=== PATIENT | female | born 1965 | race Caucasian/White ===

== ENCOUNTER 2016-10-17 13:57 | Observation (INO) | payer OTHER ==
[2016-10-17] MEDS ORDERED: Pepcid 20 MG VIAL IV ONE ×2 (13:58→14:22)
[2016-10-17] MEDS ORDERED: NITRO-BID 2% UD PACKETS TOP ONE (13:58)
[2016-10-17] MEDS ORDERED: Sodium Chloride 0.9% 1000 ML 1,000 ML IV SCH (14:00)
[2016-10-17] MEDS ORDERED: BABY ASPIRIN 81 MG CHEW PO ONE (14:05)
--- NOTE | 2016-10-17 14:12 | ERPHSYRPT ---
- History of Present Illness Time Seen by Provider: 10/17/16 13:58 Historian: patient, other (Dr Perez) Physician History: CC: chest pain Hx; 51 y/o patient of Dr Perez/Giovanny with 4 day hx of chest pain. It has gotten better each day with 3 NTG. Today was in office and sent to ER for evaluation. EKG ok in office. Has chest pain presently. Took a baby asa this AM. She had remote stress test per Dr Baltazar. She is unsure of prior heart disease but is known to have prior coronary spasms. No N/V. No shortness of breath. No injury. Timing/Duration: day(s) (4) Location: central Chest Pain Radiation: arm Severity of Pain-Max: moderate Severity of Pain-Current: moderate Nitro Today/Relief: 0.4 mg x 1, provided at home Aspirin Treatment Today: provided at home, provided by ED Allergies/Adverse Reactions: morphine Allergy (Intermediate, Verified 10/17/16 14:17) Hives penicillin G Allergy (Intermediate, Verified 10/17/16 14:17) Hives Home Medications: Aspirin [Benji Chewable] 81 mg PO DAILY 10/17/16 [History] Atenolol 25 mg PO BID 10/17/16 [History] Citalopram Hydrobromide [Citalopram HBr] 40 mg PO DAILY 10/17/16 [History] Hydroxyzine HCl 10 mg PO TID 10/17/16 [History] Isosorbide Mononitrate 60 mg [Imdur 60MG] 60 mg PO BID 10/17/16 [History] Lovastatin 40 mg PO BID 10/17/16 [History] Nitroglycerin 0.4 mg Tablet [Nitrostat 0.4 MG Tablet] 0.4 mg SL UD [History] - Review of Systems Constitutional: No Fever, No Chills Eyes: No Symptoms Ears, Nose, & Throat: No Symptoms Respiratory: No Cough, No Dyspnea Cardiac: Chest Pain Abdominal/Gastrointestinal: No Abdominal Pain, No Nausea, No Vomiting Genitourinary Symptoms: No Symptoms Musculoskeletal: No Back Pain Skin: No Rash Neurological: No Headache All Other Systems: Reviewed and Negative - Past Medical History Pertinent Past Medical History: Yes (coronary spasms) - Social History Smoking Status: Current every day smoker - Physical Exam General Appearance: alert Eye Exam: PERRL/EOMI Ears, Nose, Throat Exam: normal ENT inspection, moist mucous membranes Neck Exam: normal inspection, non-tender, supple Respiratory Exam: normal breath sounds, lungs clear Cardiovascular Exam: regular rate/rhythm, No murmur Gastrointestinal/Abdomen Exam: soft, No tenderness, No distention, No mass, No guarding Extremity Exam: normal inspection, normal range of motion, No calf tenderness Neurologic Exam: alert, oriented x 3, cooperative, plastic joint maker II-XII nml as tested, sensation nml, No motor deficits Skin Exam: warm, dry, No rash - Course Nursing assessment & vital signs reviewed: Yes EKG Interpreted by Me: RATE (63), Sinus Rhythm, NORMAL AXIS, NORMAL INTERVALS ( QTc 441), NORMAL QRS, NORMAL ST-T - Radiology Exams cxr X-ray Interpretation: Teleradiologist Report, Negative Ordered Tests: Active Orders 24 hr Category Date Time Status Caustics Loader STAT Care 10/17/16 13:58 Active EKG-ER Only STAT Care 10/17/16 13:58 Active IV Insertion STAT Care 10/17/16 13:58 Active Pulse Oximetry (ED) STAT Care 10/17/16 13:58 Active CHEST 1 VIEW (PORTABLE) Stat Exams 10/17/16 13:58 Completed CBC W DIFF Stat Lab 10/17/16 14:10 Completed CMP Stat Lab 10/17/16 14:10 Completed TROPONIN Q3H Lab 10/17/16 14:10 Completed TROPONIN Q3H Lab 10/17/16 17:00 Ordered TROPONIN Q3H Lab 10/17/16 20:00 Ordered TROPONIN Q3H Lab 10/17/16 23:00 Ordered TROPONIN Q3H Lab 10/18/16 02:00 Ordered Medication Summary Generic Name Dose Route Start Last Admin Trade Name Freq PRN Reason Stop Dose Admin Sodium Chloride 1,000 mls @ 100 mls/hr 10/17/16 14:00 10/17/16 14:23 Sodium Chloride 0.9% 1000 Ml IV 11/16/16 13:59 100 mls/hr .Q10H LOVE Administration Discontinued Medications Generic Name Dose Route Start Last Admin Trade Name Freq PRN Reason Stop Dose Admin Aspirin 81 mg 10/17/16 14:05 10/17/16 14:22 Baby Aspirin 81 Mg Chew PO 10/17/16 14:06 81 mg STAT ONE Administration Aspirin Confirm 10/17/16 14:22 Baby Aspirin 81 Mg Chew Administered 10/17/16 14:23 Dose 81 mg .ROUTE .STK-MED ONE Famotidine 20 mg 10/17/16 13:58 10/17/16 14:25 Pepcid 20 Mg Vial IV 10/17/16 13:59 20 mg STAT ONE Administration Famotidine Confirm 10/17/16 14:22 Pepcid 20 Mg Vial Administered 10/17/16 14:23 Dose 20 mg IV .STK-MED ONE Nitroglycerin 1 gm 10/17/16 13:58 10/17/16 14:24 Nitro-Bid 2% Ud Packets TOP 10/17/16 13:59 1 gm STAT ONE Administration Nitroglycerin Confirm 10/17/16 14:22 Nitro-Bid 2% Ud Packets Administered 10/17/16 14:23 Dose 1 gm .ROUTE .STK-MED ONE Lab/Rad Data: Laboratory Result Diagrams 10/17/16 14:10 10/17/16 14:10 Laboratory Results 10/17/16 10/17/16 10/17/16 Range/Units 14:10 14:10 14:10 WBC 11.4 H (4.0-10.5) K/mm3 RBC 5.06 (4.1-5.4) M/mm3 Hgb 15.0 (12.0-16.0) gm/dl Hct 46.7 (35-47) % MCV 92.3 (78-100) fl MCH 29.6 (26-32) pg MCHC 32.1 (32-36) g/dl RDW 15.3 H (11.5-14.0) % Plt Count 374 (150-450) K/mm3 MPV 10.7 H (6-9.5) fl Gran % 49.5 (36.0-66.0) % Lymphocytes % 41.0 (24.0-44.0) % Monocytes % 8.4 (0.0-12.0) % Eosinophils % 0.9 (0.00-5.0) % Basophils % 0.2 (0.0-0.4) % Basophils # 0.02 (0-0.4) Sodium 137 (136-145) mEq/L Potassium 4.3 (3.5-5.1) mEq/L Chloride 103 (98-107) mEq/L Carbon Dioxide 25.2 (21-32) mEq/L Anion Gap 13.1 (5-15) MEQ/L BUN 15 (9-20) mg/dL Creatinine 0.98 (0.55-1.30) mg/dl Estimated GFR > 60 ML/MIN Glucose 94 (70-110) MG/DL Calcium 9.1 (8.5-10.1) mg/dL Total Bilirubin 0.6 (0.2-1.0) mg/dL AST 21 (15-37) U/L ALT 22 (12-78) U/L Alkaline Phosphatase 103 (46-116) U/L Troponin I < 0.017 (0.000-0.056) ng/ml Serum Total Protein 8.2 (6.4-8.2) gm/dL Albumin 4.0 (3.4-5.0) g/dL - Progress Progress Note: 10/17/16 16:36 Pain free after NTG paste. Subjectively feels like left arm cool and tingles. Warmth equal at this time. Pulse ox and BP equal between arms. Called Dr Perez who advised tele obs for NTG paste. Counseled pt/family regarding: lab results, diagnosis, need for follow-up, rad results - Departure Time of Disposition: 16:36 Departure Disposition: Observation Clinical Impression: Chest pain, rule out acute myocardial infarction Condition: Stable Critical Care Time: No Referrals: EVE PEREZ [Primary Care Provider] -
[2016-10-17 14:15] LABS: BASOPHIL % 0.2 % (0.0-0.4); Eosinophil % 0.9 % (0.00-5.0); Granulocytes % 49.5 % (36.0-66.0); Mean Cell Volume 92.3 fl (78-100); Mean Corpuscular Hemoglobin 29.6 pg (26-32); Mean Platelet Volume 10.7 fl (6-9.5); Monocytes % 8.4 % (0.0-12.0); Platelet Count 374 K/mm3 (150-450); Red Blood Count 5.06 M/mm3 (4.1-5.4); Red Cell Distribution Width 15.3 % (11.5-14.0); White Blood Count 11.4 K/mm3 (4.0-10.5)
[2016-10-17] MEDS ORDERED: NITRO-BID 2% UD PACKETS ONE (14:22)
[2016-10-17] MEDS ORDERED: Sodium Chloride 0.9% 1000 ML 1,000 ML ONE (14:22)
[2016-10-17] MEDS ORDERED: BABY ASPIRIN 81 MG CHEW ONE (14:22)
[2016-10-17 14:36] LABS: ALKALINE PHOSPHATASE 103 U/L (46-116); ANION GAP 13.1 MEQ/L (5-15); BILIRUBIN,TOTAL 0.6 mg/dL (0.2-1.0); BLOOD UREA NITROGEN 15 mg/dL (9-20); CHLORIDE 103 mEq/L (98-107); Carbon Dioxide 25.2 mEq/L (21-32); Glucose 94 MG/DL (70-110); Potassium 4.3 mEq/L (3.5-5.1); SGOT/AST 21 U/L (15-37); SGPT/ALT 22 U/L (12-78); SODIUM 137 mEq/L (136-145); Total Protein 8.2 gm/dL (6.4-8.2)
--- NOTE | 2016-10-17 14:56 | XRAY ---
Indication: Chest pain and short of breath. Left arm numbness. Comparison: None Portable chest hyperinflated and clear. Heart is not enlarged. Vascular normal. Bony thorax intact. Impression: Nonacute hyperinflated chest.
[2016-10-17] MEDS ORDERED: Zofran 4 MG/2 ML VIAL IV PRN (17:20)
[2016-10-17] MEDS ORDERED: MILK OF MAGNESIA 30 ML PO PRN (17:20)
[2016-10-17] MEDS ORDERED: TYLENOL 325 MG PO PRN (17:20)
[2016-10-17] MEDS ORDERED: Sodium Chloride 0.9% 500 ML 500 ML IV SCH (17:20)
[2016-10-17] MEDS ORDERED: MAALOX ES 30 ML UNIT DOSE PO PRN (17:20)
[2016-10-17] MEDS ORDERED: Senokot-S Tablet PO PRN (17:20)
[2016-10-17] MEDS ORDERED: NICODERM CQ 14 MG TOP SCH (21:15)
[2016-10-17] MEDS: NITRO-BID 2% UD PACKETS TOP SCH (22:39)
[2016-10-17] MEDS: Pepcid 20 MG VIAL IV SCH (22:39)
[2016-10-18] MEDS: TENORMIN 50 MG PO SCH ×2 (01:32→09:29)
[2016-10-18] MEDS: NITRO-BID 2% UD PACKETS TOP SCH ×2 (05:44→14:26)
[2016-10-18] MEDS ORDERED: NON-FORMULARY ITEM (Hydroxyzine Hcl [Hydroxyzine Hcl] 10 MG) PO PRN (08:05)
[2016-10-18] MEDS ORDERED: Nitrostat 0.4 MG Tablet SL PRN (08:15)
[2016-10-18] MEDS ORDERED: ATARAX 25 MG PO PRN (08:39)
[2016-10-18] MEDS: Pepcid 20 MG VIAL IV SCH (09:35)
[2016-10-18] MEDS ORDERED: NON-FORMULARY ITEM (Citalopram Hydrobromide [Citalopram Hbr] 40 MG) PO SCH (10:00)
[2016-10-18] MEDS ORDERED: LOVASTATIN 80 MG PO SCH (10:00)
[2016-10-18] MEDS ORDERED: ceLEXa 20 MG PO SCH (10:00)
[2016-10-18] MEDS ORDERED: ECOTRIN 81 MG PO SCH (10:00)
[2016-10-18] MEDS ORDERED: BABY ASPIRIN 81 MG CHEW PO SCH (10:00)
[2016-10-18] MEDS ORDERED: Imdur 60MG PO SCH (10:00)
[2016-10-18] MEDS ORDERED: Ecotrin 325 MG PO SCH (10:00)
[2016-10-18] MEDS ORDERED: PNEUMOVAX 23 IM ONE (10:00)
--- NOTE | 2016-10-18 11:13 | PCM.SSS ---
History of Present Illness - Chief Complaint Chief Complaint: Chest Pain r/o MO History of Present Illness: is a 51 year old female with long hx intermittent chest pain who came to Dr. Perez in the office yesterday c/o 4d of chest pain. Pain was described as sharp, dull, and burning; constant, 10/10 with diaphoresis, palpitations, and L arm pain "like a vice." She notes her L arm felt cold. She was taking nitro at home with incomplete relief (would take up to 3 nitro in succession). When nitro paste was applied in the ER, the pain resolved. She is not currently in any pain. Does currently have nitro paste in place. She also had several syncopal episodes; she notes that she has had these for years without any diagnosis. She no longer drives. Pt was seeing laundry operator in [place] for the past 20 years. She moved here and started seeing Dr. Perez in Aug 2016. She now sees Dr. Baltazar as well. She remembers having a diagnosis of CAD and vasospasm. Her nuclear stress test on was normal. She last had a heart catheterization about 18 years ago. She notes during ROS that on two occasions she had a vein in the foot (one on each side) that had local enlargement that was marked and then ruptured, leaving a large bruise. Also notes at times she gets red streaks that seem to correspond with blood vessels. She denies any history of testing for autoimmune disorders or rheumatology consult. Significant also in her medical hx is cervical ca in 1986 which also spread to the bowel, she states, requiring partial resection of bowel. - Review of Systems Respiratory: Short Of Breath Cardiac: Chest Pain, Edema (foot edema in the morning x 2 this week; resolved by the time she finished walking back from the bathroom) Abdominal/Gastrointestinal: Constipation, Other (poor appetite at baseline) Neurological: Other (syncope) Psychological: Anxiety (has PTSD), No Suicidal Ideations All Other Systems: Reviewed and Negative Medications & Allergies Home Medications: Home Medication List Aspirin [Benji Chewable] 81 mg PO DAILY 10/17/16 [History Confirmed 10/17/16] Atenolol 25 mg PO BID 10/17/16 [History Confirmed 10/17/16] Citalopram Hydrobromide [Citalopram HBr] 40 mg PO DAILY 10/17/16 [History Confirmed 10/17/16] Hydroxyzine HCl 10 mg PO TID PRN PRN 10/17/16 [History Confirmed 10/17/16] Isosorbide Mononitrate 60 mg [Imdur 60MG] 60 mg PO DAILY 10/17/16 [History Confirmed 10/17/16] Lovastatin 80 mg PO DAILY 10/17/16 [History Confirmed 10/17/16] Nitroglycerin 0.4 mg Tablet [Nitrostat 0.4 MG Tablet] 0.4 mg SL UD [History Confirmed 10/17/16] Allergies/Adverse Reactions: Allergies Allergy/AdvReac Type Severity Reaction Status Date / Time morphine Allergy Intermediate Hives Verified 10/17/16 14:17 penicillin G Allergy Intermediate Hives Verified 10/17/16 14:17 - Past Medical History Past Medical History: Yes Neurological History: TIA ENT History: Cataracts Cardiac History: High Cholesterol, Hypertension, Other Respiratory History: No Pertinent History Endocrine Medical History: Hypoglycemia Musculoskelatal History: No Pertinent History GI Medical History: Other Pyscho-Social History: Anxiety, Panic Disorder Reproductive Disorders: Cervical Cancer Comment: coronary spasms, angina, mitrovalve prolapse, syncope, "bowel blockage ", had a loop recorder placed and removed, and a pacemaker/defib placed and removed, former alcoholic - Female History Are you now?: No - Past Surgical History Past Surgical History: Yes Cardiac History: Internal Defibrillator, Pacemaker, Other Respiratory Surgery: No Pertinent History GI Surgical History: No Pertinent History Genitourinary Surgical Hx: No Pertinent History Musculskeletal Surgical Hx: No Pertinent History Female Surgical History: Hysterectomy Other Surgical History: pacemaker/defib placed and removed, loop recorder placed and removed - Social History Smoking Status: Current every day smoker How long have you smoked: 35 years Exposure to second hand smoke: Yes Alcohol: Occasionally Drug Use: none - Physical Exam Vital Signs: Vital Signs - 24 hr Temp Pulse Pulse Resp BP BP BP 10/18/16 09:20 104/70 10/18/16 07:14 97.8 F 66 18 107/57 10/18/16 04:00 97.8 F 65 18 116/56 10/18/16 01:32 57 L 122/58 10/18/16 00:00 98.3 F 57 L 18 122/58 10/17/16 20:00 98.8 F 69 20 102/57 10/17/16 18:15 98.3 F 57 L 22 113/69 10/17/16 15:45 57 L 22 113/69 10/17/16 14:51 65 20 130/56 10/17/16 14:10 98.3 F 71 60 22 158/83 Pulse Ox 10/18/16 09:20 10/18/16 07:14 96 10/18/16 04:00 98 10/18/16 01:32 10/18/16 00:00 100 10/17/16 20:00 96 10/17/16 18:15 98 10/17/16 15:45 98 10/17/16 14:51 97 10/17/16 14:10 100 General Appearance: no apparent distress Neurologic Exam: alert, oriented x 3, cooperative Eye Exam: eyes nml inspection Neck Exam: normal inspection Respiratory Exam: normal breath sounds, lungs clear Cardiovascular Exam: regular rate/rhythm, normal heart sounds, No murmur Gastrointestinal/Abdomen Exam: soft, normal bowel sounds, No tenderness Back Exam: normal inspection, No CVA tenderness Extremity Exam: normal inspection, No pedal edema, No swelling Skin Exam: normal color, warm, dry Results - Labs Lab/Micro Results: Lab Results-Last 24 Hours 10/17/16 10/17/16 10/18/16 Range/Units 20:00 23:04 02:18 Troponin I < 0.017 < 0.017 < 0.017 (0.000-0.056) ng/ml Triglycerides (30-200) mg/dL Cholesterol (100-200) mg/dL LDL Cholesterol (5-99) mg/dL HDL Cholesterol (35-60) mg/dL Heart Disease Risk Ratio 10/18/16 Range/Units 05:24 Troponin I (0.000-0.056) ng/ml Triglycerides 95 (30-200) mg/dL Cholesterol 146 (100-200) mg/dL LDL Cholesterol 91 (5-99) mg/dL HDL Cholesterol 44 (35-60) mg/dL Heart Disease Risk Ratio 3.3 - Other Procedures and Tests Respiratory Therapy 10/18/16 10:14 EKG ONCE 10/19/16 05:00 EKG ONCE Assessment/Plan (1) Chest pain, rule out acute myocardial infarction Current Visit: Yes Status: Acute Assessment & Plan: MO has been ruled out with five negative troponins. Currently pain free. Code(s): R07.9 - CHEST PAIN, UNSPECIFIED (2) Syncope Current Visit: Yes Status: Acute Qualifiers: Syncope type: unspecified Qualified Code(s): R55 - Syncope and collapse Code(s): R55 - SYNCOPE AND COLLAPSE (3) Chronic chest pain Current Visit: Yes Status: Acute Assessment & Plan: I removed the nitro paste. If pain recurs in the next several hours, I will discuss with on-call laundry operator Dr. Mary Rinaldi whether to change the imdur or give another form of nitro for home use. With her complaint of red streaking of the veins and venous distension in the feet, will go ahead and start auto-immune workup. She states her laundry operator in [place] wanted her to see a vascular surgeon; would have her discuss this with Dr. Perez regarding outpatient referral. Code(s): R07.9 - CHEST PAIN, UNSPECIFIED; G89.29 - OTHER CHRONIC PAIN Hospital Summary - Hospital Course Hospital Course: Pt admitted through ER, had been seen by Dr. Perez in office with 4d of chest pain. Pt with chronic intermittent chest pain; has been seeing cardiology for 20 years and is unsure the etiology of her pain. Troponins negative x 5. Pt currently pain free with nitro paste. If continues to be pain free, can d/c home after 4 hours. If the pain returns will discuss home meds wiht on-call laundry operator Dr. Mary Rinaldi. Follow up wiht Dr. Baltazar outpatient. Autoimmune labs ordered here for some concern for underlying vasculitis. - Vitals & Intake/Output Vital Signs: Vital Signs Temperature 97.8 F 10/18/16 07:14 Pulse Rate 66 10/18/16 07:14 Respiratory Rate 18 10/18/16 07:14 Blood Pressure 104/70 10/18/16 09:20 O2 Sat by Pulse Oximetry 96 10/18/16 07:14 Intake & Output: Intake & Output 10/15/16 10/16/16 10/17/16 10/18/16 11:59 11:59 11:59 11:59 Intake Total 1710 Balance 1710 Weight 70.261 kg - Lab Result Diagrams: 10/17/16 14:10 10/17/16 14:10 Lab Results-Last 24 Hrs: Lab Results-Last 24 Hours 10/17/16 10/17/16 10/18/16 Range/Units 20:00 23:04 02:18 Troponin I < 0.017 < 0.017 < 0.017 (0.000-0.056) ng/ml Triglycerides (30-200) mg/dL Cholesterol (100-200) mg/dL LDL Cholesterol (5-99) mg/dL HDL Cholesterol (35-60) mg/dL Heart Disease Risk Ratio 10/18/16 Range/Units 05:24 Troponin I (0.000-0.056) ng/ml Triglycerides 95 (30-200) mg/dL Cholesterol 146 (100-200) mg/dL LDL Cholesterol 91 (5-99) mg/dL HDL Cholesterol 44 (35-60) mg/dL Heart Disease Risk Ratio 3.3 - Procedures and Test Procedures and Tests throughout Hospitalization: Therapy Orders & Screens 10/17/16 18:33 Smoking Cessation Education Comment: Diagnosis: Chest Pain r/o MO Smoking Status: Current every day smoker How long have you smoked: 35 years Have you smoked in the past 12 months: Yes Approximately how many cigarettes per day: 1/2 pack Do you dip or chew tobacco: No 10/17/16 22:00 EKG ONCE Comment: 10/18/16 05:00 EKG ONCE Comment: 10/18/16 10:14 EKG ONCE Comment: 10/19/16 05:00 EKG ONCE Comment: - Discharge Disposition: Home, Self-Care Condition: Stable Prescriptions: No Action Aspirin [Benji Chewable] 81 mg PO DAILY Lovastatin 80 mg PO DAILY Isosorbide Mononitrate 60 mg [Imdur 60MG] 60 mg PO DAILY Hydroxyzine HCl 10 mg PO TID PRN PRN PRN Reason: Anxiety Citalopram Hydrobromide [Citalopram HBr] 40 mg PO DAILY Atenolol 25 mg PO BID Nitroglycerin 0.4 mg Tablet [Nitrostat 0.4 MG Tablet] 0.4 mg SL UD Follow up with: EVE PEREZ [Primary Care Provider] -
[2016-10-18 14:53] LABS: Collection Type VOID; Ph 5.5 (5-6)
[2016-10-18 14:54] LABS: Bacteria PACKED /HPF (NEGATIVE); COMPLETE URINE MICROSCOPIC? YES; Epithelial Cells FEW /HPF (FEW)
[2016-10-18 21:04] VITALS: BP 139/65; PULSE 71; O2SAT 100
[2016-10-18] MEDS ORDERED: ZOCOR 20MG PO SCH (22:00)
[2016-10-20 14:00] LABS: APTT In Lupus Anticoagulant 26.7 sec (23.0-34.0); Lupus Anticoagulant Pat1 41.9 sec (0.0-45.0); Ratio For TTI 1.2 (<=1.3)
[2016-10-20 16:15] LABS: ANA IgG Titer Not Indicated (Not Indicated)
== END 2016-10-18 21:20 | disposition home or self-care (01) ==
LOC: ED 13:57 → MED SURG 17:15
PROVIDERS: ADMIT Internal Medicine; ATTEND Internal Medicine
DX: R07.9 Chest pain, unspecified (principal); I10 Essential (primary) hypertension; R55 Syncope and collapse; I25.10 Atherosclerotic heart disease of native coronary artery without angina pectoris; G89.29 Other chronic pain; F45.42 Pain disorder with related psychological factors; Z85.41 Personal history of malignant neoplasm of cervix uteri; Z85.038 Personal history of other malignant neoplasm of large intestine; Z90.49 Acquired absence of other specified parts of digestive tract; E78.00 Pure hypercholesterolemia, unspecified; F41.9 Anxiety disorder, unspecified; F43.10 Post-traumatic stress disorder, unspecified; Z72.0 Tobacco use
CPT/HCPCS: 36000; 36415; 71010; 80053; 80061; 81000; 83721; 84484; 85025; 85613; 85652; 86038; 86140; 86147; 86160; 86430; 90732; 93005; 93041; 96360; 96361; 96374; 99285; G0378; A9270-GY

== ENCOUNTER 2017-07-15 01:31 | Emergency (ER) | payer OTHER ==
[2017-07-15] MEDS ORDERED: BABY ASPIRIN 81 MG CHEW PO ONE (01:39)
[2017-07-15] MEDS ORDERED: Nitrostat 0.4 MG (ED) SL ONE ×2 (01:39→02:16)
[2017-07-15] MEDS ORDERED: Valium 5 MG PO ONE (01:41)
[2017-07-15] MEDS ORDERED: Sodium Chloride 0.9% 1000 ML 1,000 ML IV SCH (01:45)
--- NOTE | 2017-07-15 01:47 | ERPHSYRPT ---
- History of Present Illness Time Seen by Provider: 07/15/17 01:31 Source: patient Exam Limitations: no limitations Physician History: FOR THE PAST 30 MINUTES PT HAS HAD SHORTNESS OF AIR, NAUSEA AND CONSTANT SHARP LOWER MID ANTERIOR CHEST PAIN WORSE WITH MOVEMENT AND DEEP BREATHING. PT HAS ALSO HAD COUGHING WITH OCCASIONAL VOMITING AFTER COUGHING FOR THE PAST MONTH. Allergies/Adverse Reactions: morphine Allergy (Intermediate, Verified 10/17/16 14:17) Hives penicillin G Allergy (Intermediate, Verified 10/17/16 14:17) Hives Home Medications: Aspirin [Benji Chewable] 81 mg PO DAILY 10/17/16 [History] Atenolol 25 mg PO BID 10/17/16 [History] Citalopram Hydrobromide [Citalopram HBr] 40 mg PO DAILY 10/17/16 [History] Hydroxyzine HCl 10 mg PO TID PRN PRN 10/17/16 [History] Isosorbide Mononitrate 60 mg [Imdur 60MG] 60 mg PO DAILY 10/17/16 [History] Lovastatin 80 mg PO DAILY 10/17/16 [History] Nitroglycerin 0.4 mg Tablet [Nitrostat 0.4 MG Tablet] 0.4 mg SL UD [History] Hx Tetanus, Diphtheria Vaccination/Date Given: No Hx Influenza Vaccination/Date Given: Yes Hx Pneumococcal Vaccination/Date Given: No - Review of Systems Constitutional: No Fever Respiratory: Cough, Dyspnea Cardiac: Chest Pain Abdominal/Gastrointestinal: Nausea, Vomiting All Other Systems: Reviewed and Negative - Past Medical History Pertinent Past Medical History: Yes Neurological History: TIA ENT History: Cataracts Cardiac History: High Cholesterol, Hypertension, Other Respiratory History: No Pertinent History Endocrine Medical History: Hypoglycemia Musculoskeletal History: No Pertinent History GI Medical History: Other Psycho-Social History: Anxiety, Panic Disorder Female Reproductive Disorders: Cervical Cancer Other Medical History: coronary spasms, angina, mitrovalve prolapse, syncope, "bowel blockage", had a loop recorder placed and removed, and a pacemaker/defib placed and removed, former alcoholic - Past Surgical History Past Surgical History: Yes Cardiac: Internal Defibrillator, Pacemaker, Other Respiratory: No Pertinent History Gastrointestinal: No Pertinent History Genitourinary: No Pertinent History Musculoskeletal: No Pertinent History Female Surgical History: Hysterectomy Other Surgical History: pacemaker/defib placed and removed, loop recorder placed and removed - Social History Smoking Status: Current every day smoker How long have you smoked: 35 years Exposure to second hand smoke: Yes Drug Use: none Patient Lives Alone: No - Nursing Vital Signs Nursing Vital Signs: Initial Vital Signs Temperature 98.2 F 07/15/17 01:44 Pulse Rate 67 07/15/17 01:44 Respiratory Rate 20 07/15/17 01:44 Blood Pressure 166/91 07/15/17 01:44 O2 Sat by Pulse Oximetry 98 07/15/17 01:44 Pain Scale Pain Intensity 0 - Physical Exam General Appearance: alert Eye Exam: PERRL/EOMI Ears, Nose, Throat Exam: TMs normal, pharynx normal, moist mucous membranes Neck Exam: normal inspection Respiratory Exam: lungs clear Cardiovascular Exam: normal heart sounds Gastrointestinal/Abdomen Exam: soft, normal bowel sounds Back Exam: normal range of motion Extremity Exam: normal inspection, No pedal edema Neurologic Exam: alert, cooperative Skin Exam: warm, dry - Course Nursing assessment & vital signs reviewed: Yes EKG Interpreted by Me: RATE (75), Sinus Rhythm, NORMAL AXIS, NORMAL INTERVALS - Radiology Exams Chest X-ray Interpretation: Interpreted by me, No Pneumonia Ordered Tests: Active Orders 24 hr Category Date Time Status [place] STAT Care 07/15/17 01:40 Active EKG-ER Only STAT Care 07/15/17 01:39 Active IV Insertion STAT Care 07/15/17 01:39 Active Oxygen-ED Only NASAL CANNULA 2 lpm Care 07/15/17 01:39 Active Pulse Oximetry (ED) STAT Care 07/15/17 01:39 Active CHEST 2 VIEWS (PA AND LAT) Stat Exams 07/15/17 01:40 Taken AMYLASE Stat Lab 07/15/17 01:40 Completed CBC W DIFF Stat Lab 07/15/17 01:40 Completed CMP Stat Lab 07/15/17 01:40 Completed LIPASE Stat Lab 07/15/17 01:40 Completed MAGNESIUM Stat Lab 07/15/17 01:40 Completed Manual Differential NC Stat Lab 07/15/17 01:40 Completed NT PRO BNP Stat Lab 07/15/17 01:40 Completed TROPONIN Q3H Lab 07/15/17 01:40 Completed TROPONIN Q3H Lab 07/15/17 04:45 Ordered TROPONIN Q3H Lab 07/15/17 07:45 Ordered TROPONIN Q3H Lab 07/15/17 10:45 Ordered TROPONIN Q3H Lab 07/15/17 13:45 Ordered UA W/RFX UR CULTURE Stat Lab 07/15/17 01:40 Ordered Urine Triage Profile Stat Lab 07/15/17 01:40 Ordered Medication Summary Generic Name Dose Route Start Last Admin Trade Name Jeff PRN Reason Stop Dose Admin Sodium Chloride 1,000 mls @ 100 mls/hr 07/15/17 01:45 07/15/17 02:22 Sodium Chloride 0.9% 1000 Ml IV 08/14/17 01:44 100 mls/hr .Q10H LOVE Administration Discontinued Medications Generic Name Dose Route Start Last Admin Trade Name Jeff PRN Reason Stop Dose Admin Aspirin 324 mg 07/15/17 01:39 07/15/17 02:21 Baby Aspirin 81 Mg Chew PO 07/15/17 01:40 324 mg STAT ONE Administration Aspirin Confirm 07/15/17 02:15 Baby Aspirin 81 Mg Chew Administered 07/15/17 02:16 Dose 324 mg .ROUTE .STK-MED ONE Diazepam 10 mg 07/15/17 01:41 07/15/17 02:22 Valium 5 Mg PO 07/15/17 01:42 10 mg STAT ONE Administration Diazepam Confirm 07/15/17 02:16 Valium 5 Mg Administered 07/15/17 02:17 Dose 10 mg .ROUTE .STK-MED ONE Nitroglycerin 0.4 mg 07/15/17 01:39 07/15/17 02:22 Nitrostat 0.4 Mg (Ed) SL 07/15/17 01:40 0.4 mg STAT ONE Administration Nitroglycerin Confirm 07/15/17 02:16 Nitrostat 0.4 Mg (Ed) Administered 07/15/17 02:17 Dose 0.4 mg SL .STK-MED ONE Lab/Rad Data: Laboratory Result Diagrams 07/15/17 01:40 07/15/17 01:40 Laboratory Results 07/15/17 07/15/17 07/15/17 Range/Units 01:40 01:40 01:40 WBC 13.6 H (4.0-10.5) K/mm3 RBC 4.47 (4.1-5.4) M/mm3 Hgb 13.4 (12.0-16.0) gm/dl Hct 41.7 (35-47) % MCV 93.3 (78-100) fl MCH 30.0 (26-32) pg MCHC 32.1 (32-36) g/dl RDW 14.0 (11.5-14.0) % Plt Count 347 (150-450) K/mm3 MPV 11.2 H (6-9.5) fl Sodium 141 (136-145) mEq/L Potassium 4.2 (3.5-5.1) mEq/L Chloride 107 (98-107) mEq/L Carbon Dioxide 23.5 (21-32) mEq/L Anion Gap 14.2 (5-15) MEQ/L BUN 16 (9-20) mg/dL Creatinine 0.82 (0.55-1.30) mg/dl Estimated GFR > 60 ML/MIN Glucose 94 (70-110) MG/DL Calcium 8.6 (8.5-10.1) mg/dL Magnesium 2.1 (1.8-2.4) mg/dL Total Bilirubin 0.20 (0.2-1.0) mg/dL AST 19 (15-37) U/L ALT 19 (12-78) U/L Alkaline Phosphatase 78 (46-116) U/L Troponin I < 0.017 (0.000-0.056) ng/ml NT-Pro-B Natriuret Pep 154 H (0-125) pg/ml Serum Total Protein 7.3 (6.4-8.2) gm/dL Albumin 3.7 (3.4-5.0) g/dL Amylase 78 (25-115) U/L Lipase 131 (73-393) U/L - Departure Time of Disposition: 03:05 Departure Disposition: Home Clinical Impression: CHEST PAIN, ANXIETY Condition: Stable Critical Care Time: No Referrals: EVE PEREZ [Primary Care Provider] - Instructions: Chest Pain Additional Instructions: FOLLOW UP WITH PRIVATE DOCTOR TOMORROW.
[2017-07-15 01:57] VITALS: O2SAT 98
[2017-07-15 02:02] LABS: Granulocyte Absolute (ANC) 6.87 (1.4-6.9); Hematocrit 41.7 % (35-47); Hemoglobin 13.4 gm/dl (12.0-16.0); Mean Cell Volume 93.3 fl (78-100); Mean Corpuscular Hgb Concent. 32.1 g/dl (32-36); Mean Platelet Volume 11.2 fl (6-9.5); Platelet Count 347 K/mm3 (150-450); Red Blood Count 4.47 M/mm3 (4.1-5.4); White Blood Count 13.6 K/mm3 (4.0-10.5)
[2017-07-15] MEDS ORDERED: BABY ASPIRIN 81 MG CHEW ONE (02:15)
[2017-07-15] MEDS ORDERED: Sodium Chloride 0.9% 1000 ML 1,000 ML ONE (02:16)
[2017-07-15] MEDS ORDERED: Valium 5 MG ONE (02:16)
[2017-07-15 02:29] LABS: ALBUMIN 3.7 g/dL (3.4-5.0); ALKALINE PHOSPHATASE 78 U/L (46-116); AMYLASE 78 U/L (25-115); ANION GAP 14.2 MEQ/L (5-15); BLOOD UREA NITROGEN 16 mg/dL (9-20); CHLORIDE 107 mEq/L (98-107); Calcium 8.6 mg/dL (8.5-10.1); Carbon Dioxide 23.5 mEq/L (21-32); Creatinine 1 0.82 mg/dl (0.55-1.30); EST GLOMERULAR FILTRATION RATE > 60 ML/MIN; Glucose 94 MG/DL (70-110); LIPASE 131 U/L (73-393); MAGNESIUM 2.1 mg/dL (1.8-2.4); NT PRO BNP 154 pg/ml (0-125); Potassium 4.2 mEq/L (3.5-5.1); SGOT/AST 19 U/L (15-37); SGPT/ALT 19 U/L (12-78); SODIUM 141 mEq/L (136-145); Total Protein 7.3 gm/dL (6.4-8.2)
[2017-07-15 03:02] VITALS: BP 133/75; PULSE 66
[2017-07-15 03:07] LABS: Appearance CLEAR (CLEAR); Bilirubin NEGATIVE (NEGATIVE); Blood NEGATIVE Ery/ul (0-5); Glucose NEGATIVE (NEGATIVE); Ketones NEGATIVE (NEGATIVE); Leukocyte Esterase NEGATIVE (NEGATIVE); Nitrite NEGATIVE (NEGATIVE); Protein,Urine Dip NEGATIVE (Negative); Urobilinogen 1 mg/dL (0-1)
[2017-07-15 03:19] LABS: Amphetamine,Urine NEG. (NEGATIVE); Barbiturate,Urine NEG. (NEGATIVE); Benzodiazepine,Urine NEG. (NEGATIVE); Cocaine,Urine NEG. (NEGATIVE); Methadone,Urine NEG. (NEGATIVE); Opiate,Urine NEG. (NEGATIVE); PCP,Urine NEG. (NEGATIVE); THC,Urine NEG. (NEGATIVE)
[2017-07-15 04:17] LABS: Eosinophil 1 % (0.00-3.0); Lymphocytes 34 % (24-44); Monocyte 6 % (0.0-12.0); Neutrophils 59 % (36.0-66.0); Total Cells Counted 100
[2017-07-15 04:18] LABS: Platelet Estimate NORMAL (NORMAL)
--- NOTE | 2017-07-15 08:58 | XRAY ---
Indication: Short of breath. Comparison: October 17, 2016. PA/lateral chest again demonstrates normal heart, lungs, and bony thorax.
== END 2017-07-15 03:19 | disposition home or self-care (01) ==
LOC: ED 01:31
DX: R07.9 Chest pain, unspecified (principal); F41.9 Anxiety disorder, unspecified
CPT/HCPCS: 36000; 36415; 71046; 80053; 80307; 81002; 82150; 83690; 83735; 83880; 84484; 85025; 93005; 93041; 96360; 99283; 99284; A9270-GY

== ENCOUNTER 2017-10-06 09:54 | Observation (INO) | payer OTHER ==
[2017-10-06] MEDS ORDERED: DEMEROL 50 MG SDV IV ONE (10:41)
[2017-10-06] MEDS ORDERED: VERSED 5 MG/5 ML IV ONE (10:41)
[2017-10-06] MEDS ORDERED: Colace 100 MG PO PRN (11:15)
[2017-10-06] MEDS ORDERED: TYLENOL 325 MG PO PRN (11:15)
[2017-10-06] MEDS ORDERED: MILK OF MAGNESIA 30 ML PO PRN (11:15)
[2017-10-06 11:31] LABS: BASOPHIL % 0.1 % (0.0-0.4); Basophil (Absolute #) 0.01 (0-0.4); Eosinophil % 0.5 % (0.00-5.0); Eosinophil (Absolute #) 0.07 (0-0.5); Granulocyte Absolute (ANC) 8.96 (1.4-6.9); Granulocytes % 67.7 % (36.0-66.0); Hematocrit 43.7 % (35-47); Hemoglobin 14.5 gm/dl (12.0-16.0); Lymphocyte (Absolute #) 3.15 (1.0-4.6); Lymphocytes % 23.8 % (24.0-44.0); Mean Cell Volume 93.6 fl (78-100); Mean Corpuscular Hgb Concent. 33.2 g/dl (32-36); Mean Platelet Volume 11.1 fl (6-9.5); Monocyte (Absolute #) 1.05 (0.0-1.3); Monocytes % 7.9 % (0.0-12.0); Platelet Count 405 K/mm3 (150-450); Red Blood Count 4.67 M/mm3 (4.1-5.4); Red Cell Distribution Width 15.1 % (11.5-14.0); White Blood Count 13.2 K/mm3 (4.0-10.5)
[2017-10-06] MEDS: Sodium Chloride 0.9% 1000 ML 1,000 ML IV SCH ×2 (11:47→21:49)
[2017-10-06] MEDS: Zofran 4 MG/2 ML VIAL IV PRN (11:48)
[2017-10-06] MEDS: PROTONIX 40 MG IV IV SCH (11:48)
[2017-10-06 12:01] LABS: INR 1.04 (0.8-3.0)
[2017-10-06 12:02] LABS: ALBUMIN 4.4 g/dL (3.5-5.0); ALKALINE PHOSPHATASE 90 U/L (38-126); AMYLASE 89 U/L (30-110); ANION GAP 15.9 MEQ/L (5-15); BLOOD UREA NITROGEN 15 mg/dL (7-17); CHLORIDE 105 mmol/L (98-107); Calcium 9.4 mg/dL (8.4-10.2); Carbon Dioxide 25 mmol/L (22-30); Creatinine 1 0.77 mg/dL (0.52-1.04); Glucose 117 mg/dL (74-106); LIPASE 60 U/L (23-300); Potassium 3.8 mmol/L (3.5-5.1); SGOT/AST 25 U/L (14-36); SGPT/ALT 20 U/L (0-35); SODIUM 142 mmol/L (137-145); Total Protein 7.7 g/dL (6.3-8.2)
--- NOTE | 2017-10-06 12:03 | XRAY ---
Indication: Chest pain and hematemesis. Comparison: July 15, 2017. PA/lateral chest again demonstrates normal heart, lungs, and bony thorax.
[2017-10-06 12:04] LABS: PTT 29.6 SECONDS (25.3-37.0)
[2017-10-06 12:29] LABS: TROPONIN < 0.012 ng/mL (0.000-0.034)
--- NOTE | 2017-10-06 15:59 | XRAY ---
Indication: Chest pain. Multiple contiguous axial images obtained through the chest using 80 cc Isovue 370 contrast. Comparison: None Lungs are inflated with minimal biapical subpleural cystic changes and minimal bilateral dependent atelectasis. No suspicious pulmonary mass, infiltrate, or effusion. Heart is not enlarged. No pericardial effusion. Aorta is normal in course and caliber without aneurysm/dissection. No pathologic mediastinal/hilar lymphadenopathy. Bony thorax is intact. CT abdomen reported separately. Impression: Minimal biapical subpleural cystic changes. Remaining CT chest with contrast exam is negative. CTDI 18.31
--- NOTE | 2017-10-06 16:03 | XRAY ---
Indication: Vomiting blood. Nausea. Weight loss. Multiple contiguous axial images obtained through the abdomen and pelvis using 80 cc Isovue 370 contrast. Oral contrast also given. Comparison: None CT chest reported separately. Contrasted stomach and bowel loops appear nonobstructed. No free fluid/air. Both kidneys enhance and excrete. Small focus of right mid renal cortical scarring and 5 mm calcified cyst. No hydronephrosis or hydroureter. Previous hysterectomy. Remaining liver, gallbladder, pancreas, spleen, adrenal glands, kidneys, and urinary bladder appear unremarkable. Mild aortoiliac calcifications. No AAA or pathologic retroperitoneal lymphadenopathy. Osseous structures intact. No ventral or inguinal hernias. Impression: 1. Right mid renal cortical scarring with tiny calcified cyst. 2. Remaining CT abdomen with contrast exam is negative. CTDI 18.31
[2017-10-06] MEDS ORDERED: Nitrostat 0.4 MG Tablet SL PRN (16:45)
[2017-10-06 18:05] LABS: Appearance CLEAR (CLEAR); Leukocyte Esterase 2+ (NEGATIVE)
[2017-10-06 18:06] LABS: Bacteria FEW /HPF (NEGATIVE); Bilirubin NEGATIVE (NEGATIVE); Epithelial Cells FEW /HPF (FEW); Glucose NEGATIVE (NEGATIVE); Ketones NEGATIVE (NEGATIVE); Mucus MODERATE /HPF (NEGATIVE); Nitrite NEGATIVE (NEGATIVE); Protein,Urine Dip TRACE (Negative); Urobilinogen NORMAL mg/dL (0-1); WBC 15-25 /HPF (0-5)
[2017-10-06] MEDS: Nitro-Dur 0.4 MG/HR TOP SCH (21:49)
[2017-10-06] MEDS: Lopressor 25MG Tab PO SCH (21:50)
[2017-10-06] MEDS: ZOCOR 20MG PO SCH (21:50)
[2017-10-06] MEDS ORDERED: Imdur 60MG PO SCH (22:00)
[2017-10-06] MEDS ORDERED: LOVASTATIN 80 MG PO SCH (22:00)
[2017-10-07] MEDS: Sodium Chloride 0.9% 1000 ML 1,000 ML IV SCH (06:27)
--- NOTE | 2017-10-07 08:15 | CONS ---
CONSULT DATE: 10/06/2017 REASON FOR CONSULT: Nausea and vomiting. HISTORY: This patient complains of two to three weeks of nausea, vomiting and chest pain with a tight pain in her chest that comes and goes. She did have hematemesis a few days ago. She noted that she was also having blood in the nose at this time. She had several episodes of vomiting yesterday which did not have any blood in them. She has not thrown up yet today. She did go through the [facility] Emergency Department on 09/26/2017 and was recommended admission but refused admission at that time. The patient has not been able to eat for the last couple of weeks. She said that she goes sometimes a couple of months without having a bowel movement and this has been going on for several decades. She had a colonoscopy two years ago in [place] where she said they found a bowel blockage but that nothing needed to be done about it. She denies any recent flatus or recent bowel movements. The nausea has improved since being admitted and receiving antiemetic. She is still complaining of some chest pain. PAST MEDICAL HISTORY: Coronary artery disease, mitral valve problems she is unsure of. PAST SURGICAL HISTORY: Hysterectomy, tonsils and adenoids, cardiac stent x2. MEDICATIONS: Aspirin, Lopressor, Celexa, hydroxyzine, statin, Nitro. ALLERGIES: PENICILLIN, MORPHINE. SOCIAL HISTORY: Positive for tobacco and rare alcohol. FAMILY HISTORY: Breast cancer, cervical cancer, coronary artery disease. PHYSICAL EXAMINATION: GENERAL: No acute distress. HEENT: Sclera nonicteric. Extraocular movements intact. NECK: Supple. No JVD. CHEST: Nonlabored. No crepitus. EXTREMITIES: No peripheral edema. ABDOMEN: Soft, nondistended, very mild tenderness in the left lower quadrant. SKIN: Warm, dry and intact. NEURO: Awake, alert and oriented, appropriate affect. LAB DATA AND TESTS: White blood cell 13.2, hemoglobin 14.5, PLT 405,000. International normalized ratio 1.04. Creatinine 0.77. ASSESSMENT: Subacute nausea and vomiting with epigastric and chest pain as well as chronic constipation. PLAN: CT chest, abdomen and pelvis today to evaluate for any sort of bowel obstruction although the patient is nondistended and has very minimal abdominal pain. The patient does report history of hematemesis however she was having a nosebleed when this happened two days ago and the blood may have just been from her nose. However, I think it would be reasonable to perform an EGD at some point after she has cardiac clearance. Await CT scan results and may potentially start diet if CT results are okay.
[2017-10-07] MEDS ORDERED: Dextrose 5% -0.45 NaCl 1000 ML 1,000 ML IV SCH (08:45)
[2017-10-07] MEDS ORDERED: NON-FORMULARY ITEM (Citalopram Hydrobromide [Citalopram Hbr] 40 MG) PO SCH (10:00)
[2017-10-07] MEDS: Lopressor 25MG Tab PO SCH ×2 (11:30→22:12)
[2017-10-07] MEDS: Ecotrin 325 MG PO SCH (11:30)
[2017-10-07] MEDS: ceLEXa 20 MG PO SCH (11:31)
[2017-10-07] MEDS: Nitro-Dur 0.4 MG/HR TOP SCH ×2 (11:33→22:10)
[2017-10-07] MEDS: PROTONIX 40 MG IV IV SCH (11:33)
--- NOTE | 2017-10-07 15:10 | CONS ---
CONSULT DATE: 10/07/2017 BRIEF HISTORY: This is a 52 year-old female who was seen for preoperative cardiac evaluation prior to planned upper endoscopy. The patient was admitted with complaints of nausea and vomiting associated with some chest tightness. She apparently had hematemesis a few days prior this admission. She is now scheduled for upper endoscopy. From the cardiac standpoint she has been worked up for chest pain for many years and also for syncope. No definite etiology was found for the syncope. 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 When she woke up she was cognizant of her environment. She had a recent stress test done on 10/09/2016 that showed no ischemia with normal left ventricular ejection fraction. She has had previous cardiac catheterization in 1998 and this was normal. 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 She has had Holter and EEG which were both unremarkable. Her passing out spells dates back more than 20 years ago. CARDIAC RISK FACTORS: History of hypertension and hyperlipidemia. She still smokes. FAMILY HISTORY: Positive for coronary artery disease. MEDICATIONS: Aspirin, Lopressor, Celexa, hydroxyzine, lovastatin. ALLERGIES: PENICILLIN, MORPHINE. PAST SURGICAL HISTORY: Hysterectomy, tonsillectomy and adenoidectomy. 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 She has history of passing out spells. No definite seizures. RESPIRATORY: No chronic cough or hemoptysis. GI: Recent nausea and vomiting. : Negative for dysuria and hematuria. PERIPHERAL VASCULAR: Negative for deep venous thrombosis or claudication. PAST SURGICAL HISTORY: She has no significant alcohol intake. PHYSICAL EXAMINATION: Her blood pressure is 112/52, pulse 67, respiratory rate about 14. GENERAL: The patient is a middle aged female who is alert, oriented, who is not in any form of distress. HEENT: Unremarkable. NECK: No significant JVD. No carotid bruit. CHEST: The breath sounds are clear. CARDIAC: Heart tones are normal. The rhythm is regular. ABDOMEN: Soft with normal bowel sounds. No bruits. EXTREMITIES: No significant edema with good distal pulses. LAB DATA AND DIAGNOSTIC TESTS: The EKG shows normal sinus rhythm. No significant ST-T changes. IMPRESSION: In essence the patient is at low risk for the planned procedure. I will see her back after her GI work up. She most likely will need a neurological evaluation as she may be having seizures as a cause of her syncope spells. I will see her in the clinic for follow up.
[2017-10-07] MEDS: Carafate 1 GM PO SCH ×2 (17:05→22:11)
[2017-10-07] MEDS: ZOCOR 20MG PO SCH (22:11)
[2017-10-08 07:02] VITALS: BP 139/86; PULSE 62; O2SAT 97
[2017-10-08] MEDS: Carafate 1 GM PO SCH (07:53)
--- NOTE | 2017-10-08 07:55 | CONS ---
CONSULT DATE: 10/07/2017 REASON FOR CONSULT: Nausea, vomiting and epigastric pain. HISTORY: The patient had a colonoscopy two years ago but has never had an upper scope. She has had a lot of cardiac disease. She does have two cardiac stents. She has had cardiac clearance from Dr. Baltazar. She is seen and examined at the bedside. She has not really been able to hold anything down for two or three weeks and she has a substantial amount of epigastric discomfort. PHYSICAL EXAMINATION: Negative. IMPRESSION: Persistent nausea and vomiting of three weeks duration. PLAN: EGD.
[2017-10-08] MEDS: Zofran 4 MG/2 ML VIAL IV PRN (08:03)
--- NOTE | 2017-10-08 08:40 | PCM.DCORD ---
- Discharge Discharge Date: 10/08/17 Disposition: Home, Self-Care Condition: Good Prescriptions: New Sucralfate 1 gm [Carafate 1 GM] 1 g PO ACHS #120 tablet Docusate Sodium 100 mg [Colace 100 MG] 100 mg PO BID #180 capsule PANTOPRAZOLE 40 mg Tablet [Protonix 40MG Tablet] 40 mg PO DAILY #30 tab Continue Lovastatin 80 mg PO HS Citalopram Hydrobromide [Citalopram HBr] 40 mg PO DAILY Nitroglycerin 0.4 mg Tablet [Nitrostat 0.4 MG Tablet] 0.4 mg SL UD Aspirin EC 325 mg [Ecotrin 325 MG] 325 mg PO DAILY Metoprolol Tartrate 25 mg [Lopressor 25MG Tab] 25 mg PO BID Nitroglycerin 0.4 mg/Hr [Nitro-Dur 0.4 MG/HR] 0.4 mg TOP BID Additional Instructions: To see Dr. Finch to rule out seizures causing syncopal episodes. Please give outpatient order for stool for H. pylori antigen. Follow up with: EVE PEREZ [Primary Care Provider] - 1 Week CHAD MEJIA MD [ASSOCIATE STAFF] - 1 Week DEVEN FINCH [NON-STAFF PHY W/O PRIVILEGES] - 1 Week
[2017-10-08] MEDS: ceLEXa 20 MG PO SCH (09:44)
[2017-10-08] MEDS: Lopressor 25MG Tab PO SCH (09:44)
[2017-10-08] MEDS: Ecotrin 325 MG PO SCH (09:44)
[2017-10-08] MEDS: Nitro-Dur 0.4 MG/HR TOP SCH (09:44)
[2017-10-08] MEDS: PROTONIX 40 MG IV IV SCH (09:45)
--- NOTE | 2017-10-09 07:49 | OP ---
SURGERY DATE/TIME: 10/08/2017 1425 PREOPERATIVE DIAGNOSIS: Nausea, vomiting for three to six weeks duration. POSTOPERATIVE DIAGNOSIS: Major duodenal ulcer which is showing significant signs of healing but still present and has been very large. The residual bed now is about 1 cm with rounded edges but an open fibrinous 1 cm ulcer in the duodenal bulb. PROCEDURE: EGD. SURGEON: Mark Parmar M.D. ANESTHESIA: IV sedation. COMPLICATIONS: None. CONDITION: Stable. INDICATION: The patient is requiring evaluation. DESCRIPTION OF PROCEDURE: Taken to the endoscopy. IV sedation provided. Satisfaction level was satisfactory. Scope introduced. Pharyngoesophageal is normal. Esophagus normal. Gastroesophageal junction 2/3 gastroesophageal reflux disease. No hiatal hernia. Fundus, body and antrum normal. Pylorus satisfactory. In the duodenum there had been a 2 or 3 cm duodenal ulcer which is down to about 1 cm at this time with very rounded edges, early healing but still present and it had been a very large ulcer. There is no bleeding. She is on Plavix. No biopsies are taken. No Helicobacter pylori sample is taken. Scope is withdrawn. The patient tolerated the procedure satisfactorily. IMPRESSION: Healing very large significant duodenal ulcer.
== END 2017-10-08 10:57 | disposition home or self-care (01) ==
LOC: MED SURG 10:40
PROVIDERS: ADMIT Internal Medicine; ATTEND Internal Medicine
PROC: 0DJ08ZZ Inspection of Upper Intestinal Tract, Via Natural or Artificial Opening Endoscopic (ICD-10-PCS; principal; 2017-10-08)
DX: K92.0 Hematemesis (principal); R07.89 Other chest pain; F43.10 Post-traumatic stress disorder, unspecified; E78.00 Pure hypercholesterolemia, unspecified; I10 Essential (primary) hypertension; R11.2 Nausea with vomiting, unspecified; K26.9 Duodenal ulcer, unspecified as acute or chronic, without hemorrhage or perforation; E78.5 Hyperlipidemia, unspecified; I25.10 Atherosclerotic heart disease of native coronary artery without angina pectoris; Z79.899 Other long term (current) drug therapy; K59.09 Other constipation
CPT/HCPCS: 36415; 71046; 71260; 74177; 80053; 81000; 82150; 82272; 83690; 84484; 85025; 85610; 85730; 93005; 93268; 94760; J2175; J2250; J2405; A9270-GY; G0378

== ENCOUNTER 2018-12-02 19:10 | Observation (INO) | payer OTHER ==
[2018-12-02] MEDS ORDERED: Zofran 4 MG/2 ML VIAL IV ONE (19:22)
[2018-12-02] MEDS ORDERED: Nitrostat 0.4 MG (ED) SL ONE (19:22)
[2018-12-02] MEDS ORDERED: BABY ASPIRIN 81 MG CHEW PO ONE (19:22)
--- NOTE | 2018-12-02 19:22 | ERPHSYRPT ---
- History of Present Illness Time Seen by Provider: 12/02/18 19:15 Physician History: 53 y/o white female with h/o mi, htn and has a single cardiac stent in place and is on plavix, presents with 10/10 sharp, stabbing, substernal central cp with radiation down right arm. began earlier today. not improved. pt uses a daily ntg patch and has one on now. pt gets a rash with morphine. pt continues to smoke. Timing/Duration: today Activities at Onset: none Quality: sharpness, stabbing Location: substernal, central Chest Pain Radiation: arm (right) Severity of Pain-Max: moderate Severity of Pain-Current: moderate Modifying Factors: Improves With: breathing (worsens) Associated Symptoms: hurts to breathe, No nausea, No vomiting, No shortness of breath, No diaphoresis, No weakness, No syncope Prior Chest Pain/Cardiac Workup: angina, cardiac cath, heart attack Nitro Today/Relief: provided at home (pt has a daily ntg patch on) Aspirin Treatment Today: no aspirin today, provided by ED (325mg) Allergies/Adverse Reactions: morphine Allergy (Intermediate, Verified 12/02/18 19:25) Hives penicillin G Allergy (Intermediate, Verified 12/02/18 19:25) Hives ibuprofen Allergy (Verified 12/02/18 19:25) Rash Home Medications: Citalopram Hydrobromide [Citalopram HBr] 40 mg PO DAILY 10/17/16 [History] Lovastatin 80 mg PO HS 10/17/16 [History] Nitroglycerin 0.4 mg Tablet [Nitrostat 0.4 MG Tablet] 0.4 mg SL UD [History] Metoprolol Tartrate 25 mg [Lopressor 25MG Tab] 25 mg PO BID 10/06/17 [ History] Nitroglycerin 0.4 mg/Hr [Nitro-Dur 0.4 MG/HR] 0.4 mg TOP DAILY 10/06/17 [ History] Clopidogrel Bisulfate 75 mg [PLAVIX 75 MG Tablet] 75 mg PO DAILY 12/02/18 [History] Hx Tetanus, Diphtheria Vaccination/Date Given: No Hx Influenza Vaccination/Date Given: Yes Hx Pneumococcal Vaccination/Date Given: No - Review of Systems Constitutional: No Symptoms Eyes: No Symptoms Ears, Nose, & Throat: No Symptoms Respiratory: No Symptoms Cardiac: Chest Pain Abdominal/Gastrointestinal: No Symptoms, No Abdominal Pain, No Nausea, No Vomiting, No Diarrhea Genitourinary Symptoms: No Symptoms Musculoskeletal: No Symptoms Skin: No Symptoms Neurological: No Symptoms Psychological: No Symptoms Endocrine: No Symptoms Hematologic/Lymphatic: No Symptoms Immunological/Allergic: No Symptoms All Other Systems: Reviewed and Negative - Past Medical History Pertinent Past Medical History: Yes Neurological History: TIA ENT History: Cataracts Cardiac History: High Cholesterol, Hypertension, Other Respiratory History: No Pertinent History Endocrine Medical History: Hypoglycemia Musculoskeletal History: No Pertinent History GI Medical History: Other History: No Pertinent History Psycho-Social History: Anxiety, Panic Disorder Female Reproductive Disorders: Cervical Cancer Other Medical History: coronary spasms, angina, mitrovalve prolapse, syncope, "bowel blockage", and a pacemaker/defib placed and removed, former alcoholic - Past Surgical History Past Surgical History: Yes Cardiac: Internal Defibrillator, Pacemaker, Other Respiratory: No Pertinent History Gastrointestinal: No Pertinent History Genitourinary: No Pertinent History Musculoskeletal: No Pertinent History Female Surgical History: Hysterectomy Other Surgical History: pacemaker/defib placed and removed - Social History Smoking Status: Current every day smoker How long have you smoked: 35 years Exposure to second hand smoke: Yes Drug Use: none Patient Lives Alone: No - Nursing Vital Signs Nursing Vital Signs: Initial Vital Signs Temperature 99.6 F 12/02/18 19:10 Pulse Rate 112 H 12/02/18 19:10 Respiratory Rate 20 12/02/18 19:10 Blood Pressure 163/99 12/02/18 19:10 O2 Sat by Pulse Oximetry 98 12/02/18 19:10 Pain Scale Pain Intensity 8 - Physical Exam General Appearance: mild distress, alert, anxiety Eye Exam: PERRL/EOMI Ears, Nose, Throat Exam: normal ENT inspection, moist mucous membranes Neck Exam: normal inspection, non-tender, supple, full range of motion Respiratory Exam: normal breath sounds, chest tenderness, lungs clear, airway intact, No respiratory distress Cardiovascular Exam: tachycardia Pelvic Exam: not done Rectal Exam: not done Back Exam: normal inspection, normal range of motion, CVA tenderness Extremity Exam: normal inspection, normal range of motion, pelvis stable Neurologic Exam: alert, oriented x 3, cooperative, grain spouter II-XII nml as tested, normal mood/affect, nml cerebellar function, nml station & gait, sensation nml Skin Exam: normal color, warm, dry Lymphatic Exam: No adenopathy SpO2 Interpretation: normal SpO2: 98 O2 Delivery: Room Air - Course Nursing assessment & vital signs reviewed: Yes EKG Interpreted by Me: RATE (100), Sinus Rhythm, NORMAL AXIS, NORMAL INTERVALS, NORMAL QRS, Other (no ischemic changes; no change from comparison ekg date ) Ordered Tests: Active Orders 24 hr Category Date Time 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 Care 12/02/18 19:23 Active EKG-ER Only STAT Care 12/02/18 19:22 Active IV Insertion STAT Care 12/02/18 19:22 Active CHEST 1 VIEW (PORTABLE) Stat Exams 12/02/18 19:39 Taken CHEST WITH CONTRAST [CT] Stat Exams 12/02/18 20:29 Taken CBC W DIFF Stat Lab 12/02/18 19:30 Completed CMP Stat Lab 12/02/18 19:30 Completed D-DIMER QUANTITATION Stat Lab 12/02/18 19:30 Completed NT PRO BNP Stat Lab 12/02/18 19:30 Completed PROTIME WITH INR Stat Lab 12/02/18 19:30 Completed TROPONIN Q3H Lab 12/02/18 19:30 Completed TROPONIN Q3H Lab 12/02/18 22:30 Ordered TROPONIN Q3H Lab 12/03/18 01:30 Ordered TROPONIN Q3H Lab 12/03/18 04:30 Ordered TROPONIN Q3H Lab 12/03/18 07:30 Ordered Transfer Order Routine Transfer 12/02/18 Ordered Medication Summary Generic Name Dose Route Start Last Admin Trade Name Freq PRN Reason Stop Dose Admin Sodium Chloride 1,000 mls @ 50 mls/hr 12/02/18 19:30 12/02/18 19:49 Sodium Chloride 0.9% 1000 Ml IV 01/01/19 19:29 50 mls/hr .Q20H LOVE Administration Discontinued Medications Generic Name Dose Route Start Last Admin Trade Name Freq PRN Reason Stop Dose Admin Al Hydrox/Mg Hydrox/Simethicone Confirm 12/02/18 19:32 Maalox Es 30 Ml Unit Dose Administered 12/02/18 19:33 Dose 30 ml .ROUTE .STK-MED ONE Aspirin 324 mg 12/02/18 19:22 12/02/18 19:31 Baby Aspirin 81 Mg Chew PO 12/02/18 19:23 324 mg STAT ONE Administration Enoxaparin Sodium 80 mg 12/02/18 22:40 Enoxaparin Sodium SQ 12/02/18 22:41 STAT ONE Lidocaine HCl Confirm 12/02/18 19:32 Xylocaine Hcl Viscous * Administered 12/02/18 19:33 Dose 15 ml .ROUTE .STK-MED ONE Magnesium Hydroxide 45 ml 12/02/18 19:26 12/02/18 19:49 Gi Cocktail 45 Ml (Maalox/Lidocaine) PO 12/02/18 19:27 45 ml STAT ONE Administration Meperidine HCl 50 mg 12/02/18 19:24 12/02/18 19:48 Demerol 75 Mg IV 12/02/18 19:25 50 mg STAT ONE Administration Meperidine HCl Confirm 12/02/18 19:32 Demerol 50 Mg Administered 12/02/18 19:33 Dose 50 mg .ROUTE .STK-MED ONE Nitroglycerin 0.4 mg 12/02/18 19:22 12/02/18 19:31 Nitrostat 0.4 Mg (Ed) SL 12/02/18 19:23 0.4 mg STAT ONE Administration Ondansetron HCl 4 mg 12/02/18 19:22 12/02/18 19:49 Zofran 4 Mg/2 Ml Vial IV 12/02/18 19:23 4 mg STAT ONE Administration Ondansetron HCl Confirm 12/02/18 19:31 Zofran 4 Mg/2 Ml Vial Administered 12/02/18 19:32 Dose 4 mg .ROUTE .STK-MED ONE Lab/Rad Data: Laboratory Result Diagrams 12/02/18 19:30 12/02/18 19:30 Laboratory Results 12/02/18 12/02/18 12/02/18 Range/Units 19:30 19:30 19:30 WBC (4.0-10.5) K/mm3 RBC (4.1-5.4) M/mm3 Hgb (12.0-16.0) gm/dl Hct (35-47) % MCV (78-100) fl MCH (26-32) pg MCHC (32-36) g/dl RDW (11.5-14.0) % Plt Count (150-450) K/mm3 MPV (6-9.5) fl Gran % (36.0-66.0) % Eos # (Auto) (0-0.5) Absolute Lymphs (auto) (1.0-4.6) Absolute Monos (auto) (0.0-1.3) Lymphocytes % (24.0-44.0) % Monocytes % (0.0-12.0) % Eosinophils % (0.00-5.0) % Basophils % (0.0-0.4) % Absolute Granulocytes (1.4-6.9) Basophils # (0-0.4) PT 11.4 (9.95-12.35) SECONDS INR 0.98 (0.8-3.0) D-Dimer 610 H* (215-500) ng/mL Sodium 142 (137-145) mmol/L Potassium 3.5 (3.5-5.1) mmol/L Chloride 107 (98-107) mmol/L Carbon Dioxide 25 (22-30) mmol/L Anion Gap 13.3 (5-15) MEQ/L BUN 9 (7-17) mg/dL Creatinine 0.64 (0.52-1.04) mg/dL Estimated GFR > 60.0 ML/MIN Glucose 105 (74-106) mg/dL Calcium 9.4 (8.4-10.2) mg/dL Total Bilirubin 0.40 (0.2-1.3) mg/dL AST 22 (14-36) U/L ALT 16 (0-35) U/L Alkaline Phosphatase 71 (38-126) U/L Troponin I < 0.012 (0.000-0.034) ng/mL NT-Pro-B Natriuret Pep 277 (0-900) pg/mL Serum Total Protein 7.9 (6.3-8.2) g/dL Albumin 4.3 (3.5-5.0) g/dL 12/02/18 Range/Units 19:30 WBC 12.9 H (4.0-10.5) K/mm3 RBC 4.39 (4.1-5.4) M/mm3 Hgb 13.8 (12.0-16.0) gm/dl Hct 42.6 (35-47) % MCV 97.0 (78-100) fl MCH 31.4 (26-32) pg MCHC 32.4 (32-36) g/dl RDW 14.8 H (11.5-14.0) % Plt Count 299 (150-450) K/mm3 MPV 11.7 H (6-9.5) fl Gran % 57.7 (36.0-66.0) % Eos # (Auto) 0.11 (0-0.5) Absolute Lymphs (auto) 4.09 (1.0-4.6) Absolute Monos (auto) 1.22 (0.0-1.3) Lymphocytes % 31.7 (24.0-44.0) % Monocytes % 9.5 (0.0-12.0) % Eosinophils % 0.9 (0.00-5.0) % Basophils % 0.2 (0.0-0.4) % Absolute Granulocytes 7.47 H (1.4-6.9) Basophils # 0.02 (0-0.4) PT (9.95-12.35) SECONDS INR (0.8-3.0) D-Dimer (215-500) ng/mL Sodium (137-145) mmol/L Potassium (3.5-5.1) mmol/L Chloride (98-107) mmol/L Carbon Dioxide (22-30) mmol/L Anion Gap (5-15) MEQ/L BUN (7-17) mg/dL Creatinine (0.52-1.04) mg/dL Estimated GFR ML/MIN Glucose (74-106) mg/dL Calcium (8.4-10.2) mg/dL Total Bilirubin (0.2-1.3) mg/dL AST (14-36) U/L ALT (0-35) U/L Alkaline Phosphatase (38-126) U/L Troponin I (0.000-0.034) ng/mL NT-Pro-B Natriuret Pep (0-900) pg/mL Serum Total Protein (6.3-8.2) g/dL Albumin (3.5-5.0) g/dL - Progress Progress: improved, re-examined Air Movement: good Progress Note: 12/02/18 21:57 cta chest-new tiny nonoccluding LLL segmental pulmonary emolus. new tiny left effusion. Counseled pt/family regarding: lab results, diagnosis, rad results - Departure Departure Disposition: Observation Clinical Impression: Pulmonary embolism, Chest pain Condition: Stable Critical Care Time: Yes Critical Care Time(excluding separately billable procedures): 30-74 minutes Referrals: EVE PEREZ [Primary Care Provider] -
[2018-12-02] MEDS ORDERED: DEMEROL 75 MG IV ONE (19:24)
[2018-12-02] MEDS ORDERED: GI COCKTAIL 45 ML (Maalox/Lidocaine) PO ONE (19:26)
[2018-12-02] MEDS ORDERED: Sodium Chloride 0.9% 1000 ML 1,000 ML IV SCH (19:30)
[2018-12-02] MEDS ORDERED: Zofran 4 MG/2 ML VIAL ONE (19:31)
[2018-12-02] MEDS ORDERED: XYLOCAINE HCl Viscous ONE (19:32)
[2018-12-02] MEDS ORDERED: Sodium Chloride 0.9% 1000 ML 1,000 ML ONE (19:32)
[2018-12-02] MEDS ORDERED: MAALOX ES 30 ML UNIT DOSE ONE (19:32)
[2018-12-02] MEDS ORDERED: DEMEROL 50 MG ONE (19:32)
[2018-12-02 19:36] LABS: BASOPHIL % 0.2 % (0.0-0.4); Basophil (Absolute #) 0.02 (0-0.4); Eosinophil % 0.9 % (0.00-5.0); Eosinophil (Absolute #) 0.11 (0-0.5); Granulocyte Absolute (ANC) 7.47 (1.4-6.9); Granulocytes % 57.7 % (36.0-66.0); Hematocrit 42.6 % (35-47); Hemoglobin 13.8 gm/dl (12.0-16.0); Lymphocyte (Absolute #) 4.09 (1.0-4.6); Lymphocytes % 31.7 % (24.0-44.0); Mean Corpuscular Hemoglobin 31.4 pg (26-32); Mean Corpuscular Hgb Concent. 32.4 g/dl (32-36); Mean Platelet Volume 11.7 fl (6-9.5); Monocyte (Absolute #) 1.22 (0.0-1.3); Monocytes % 9.5 % (0.0-12.0); Platelet Count 299 K/mm3 (150-450); Red Blood Count 4.39 M/mm3 (4.1-5.4); Red Cell Distribution Width 14.8 % (11.5-14.0); White Blood Count 12.9 K/mm3 (4.0-10.5)
[2018-12-02 19:43] LABS: INR 0.98 (0.8-3.0); PROTIME 11.4 SECONDS (9.95-12.35)
[2018-12-02 19:57] LABS: ALBUMIN 4.3 g/dL (3.5-5.0); ALKALINE PHOSPHATASE 71 U/L (38-126); ANION GAP 13.3 MEQ/L (5-15); BLOOD UREA NITROGEN 9 mg/dL (7-17); CHLORIDE 107 mmol/L (98-107); Calcium 9.4 mg/dL (8.4-10.2); Carbon Dioxide 25 mmol/L (22-30); Creatinine 1 0.64 mg/dL (0.52-1.04); Glucose 105 mg/dL (74-106); NT PRO BNP 277 pg/mL (0-900); Potassium 3.5 mmol/L (3.5-5.1); SGOT/AST 22 U/L (14-36); SGPT/ALT 16 U/L (0-35); SODIUM 142 mmol/L (137-145); Total Protein 7.9 g/dL (6.3-8.2)
[2018-12-02] MEDS ORDERED: ENOXAPARIN SODIUM SQ ONE ×2 (22:40→23:12)
[2018-12-02] MEDS ORDERED: DEMEROL 50 MG IV PRN (23:32)
[2018-12-02] MEDS ORDERED: Ativan 2 MG/1 ML VIAL IV PRN (23:32)
[2018-12-02] MEDS ORDERED: ENOXAPARIN SODIUM SQ SCH (23:32)
[2018-12-02] MEDS ORDERED: Zofran 4 MG/2 ML VIAL IV PRN (23:32)
[2018-12-03] MEDS ORDERED: PROVENTIL COMMON CANISTER IH PRN (02:50)
[2018-12-03 05:24] LABS: BASOPHIL % 0.2 % (0.0-0.4); Basophil (Absolute #) 0.02 (0-0.4); Eosinophil % 0.7 % (0.00-5.0); Eosinophil (Absolute #) 0.08 (0-0.5); Granulocyte Absolute (ANC) 5.92 (1.4-6.9); Hemoglobin 11.9 gm/dl (12.0-16.0); Lymphocyte (Absolute #) 4.55 (1.0-4.6); Lymphocytes % 38.5 % (24.0-44.0); Mean Cell Volume 98.9 fl (78-100); Mean Corpuscular Hemoglobin 31.8 pg (26-32); Mean Corpuscular Hgb Concent. 32.2 g/dl (32-36); Mean Platelet Volume 11.5 fl (6-9.5); Monocyte (Absolute #) 1.25 (0.0-1.3); Monocytes % 10.6 % (0.0-12.0); Platelet Count 264 K/mm3 (150-450); Red Blood Count 3.74 M/mm3 (4.1-5.4); Red Cell Distribution Width 14.9 % (11.5-14.0); White Blood Count 11.8 K/mm3 (4.0-10.5)
[2018-12-03 05:46] LABS: ANION GAP 10.5 MEQ/L (5-15); BLOOD UREA NITROGEN 10 mg/dL (7-17); CHLORIDE 109 mmol/L (98-107); Calcium 8.4 mg/dL (8.4-10.2); Carbon Dioxide 25 mmol/L (22-30); Creatinine 1 0.62 mg/dL (0.52-1.04); Glucose 95 mg/dL (74-106); Potassium 4.2 mmol/L (3.5-5.1); SODIUM 140 mmol/L (137-145)
[2018-12-03] MEDS ORDERED: DEMEROL 25MG SYRINGE IV PRN (06:02)
[2018-12-03] MEDS ORDERED: DEMEROL 50 MG IV PRN (08:05)
--- NOTE | 2018-12-03 08:44 | XRAY ---
Indication: Short of breath and elevated d-dimer. History DVT. Multiple contiguous axial images obtained through the chest using 80 cc Isovue 370 contrast and PE protocol. Comparison: Conventional CT chest with contrast exam October 06, 2017. There is good opacification of the pulmonary arteries to include the lobar and segmental branches. Tiny nonoccluding pulmonary emboli seen in the proximal anterior/lateral/posterior segmental branches of the left lower lobe. Heart is not enlarged. Aorta is normal in course and caliber without aneurysm/dissection. No pathologic mediastinal/hilar lymphadenopathy. Examination of the lung parenchyma demonstrates new tiny left effusion. Also incidental mild bilateral dependent atelectasis and stable biapical subpleural cystic changes. No suspicious pulmonary mass, nodule, or infiltrate. Bony thorax intact. Limited upper abdomen unremarkable. Impression: 1. Left lower lobe nonoccluding pulmonary emboli with tiny effusion. No pulmonary infarct. 2. Stable biapical subpleural cystic changes. CT DI 11.06
--- NOTE | 2018-12-03 09:25 | XRAY ---
Indication: Chest pain. Comparison: June 09, 2018. Portable chest demonstrates new nonspecific tiny left effusion. Remaining heart, lungs, and bony thorax normal.
--- NOTE | 2018-12-03 09:32 | HP ---
HISTORY OF PRESENT ILLNESS: This is a 53 year-old patient of mine who presented to the emergency department complaining of chest pain. She said it was mostly the left side under her breast and also some right arm pain with numbness that is better now. The patient reports it had been going on for a while but it had gotten worse. I had just recently seen her in the clinic two days ago for lower extremity swelling and she had bilateral venous Doppler's then that were negative. She was seen in the clinic on 11/30/2018. She also had some pain in her left fifth finger and was found to have a proximal fracture of the phalanx of the left fifth digit. She has seen ortho already for that. Because of the numbness in her right arm we set her up to see neurology and that is coming up in December. The patient reports that she continues to have some left-sided chest pain when she takes a deep breath. She reports pain medication that she had been given is helping. She also reports some nausea but no vomiting. She reports she had a fever on admission. REVIEW OF SYSTEMS: No cough. No rhinorrhea. No lower extremity edema today. She reports she had a little bit last night. No abdominal pain. No dysuria. PAST MEDICAL HISTORY: Panic attack. Post-traumatic stress disorder. Obsessive compulsive disorder. History of coronary artery spasm. She reported two stents in the . 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 She currently sees either Dr. Carmelo Rinaldi or Dr. 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 Hyperlipidemia. Hypertension. History of cervical cancer in . The patient reports history of a stroke. History of a bowel blockage. PAST SURGICAL HISTORY: Heart catheterization with two stents in [place]. Partial hysterectomy due to cervical cancer. Tonsillectomy. Colonoscopy in 2014 to be repeated in ten years, normal. MEDICATIONS: Please see the hospital medication reconciliation form which I reviewed. ALLERGIES: LATUDA, MORPHINE, PENICILLIN. PHYSICAL EXAMINATION: VITAL SIGNS: Temperature current 99.5F, temperature max 99.6F, heart rate 93, respiratory rate 20, blood pressure 117/58, weight 79.9 kg. Oxygen saturation 92% on room air. GENERAL: The patient is a pleasant talkative lady sitting up in no acute distress. CVS: She has a regular rate and rhythm. No murmurs, gallops or rubs are appreciated. CHEST: Clear to auscultation bilaterally. No crackles or wheezes. ABDOMEN: Soft, nontender, nondistended with normal bowel sounds. EXTREMITIES: No clubbing, cyanosis or edema. She has +2 dorsalis pedis pulses bilaterally. SKIN: Warm, dry and intact. LABORATORY DATA AND TESTS: She has had four serial negative troponins. EKG is normal sinus rhythm with no ST or T-wave changes. Chest CT was read as tiny left pulmonary embolism. Please see the radiologist dictation for the full report. White blood cell count 11,800. BNP was normal at 277. D-dimer was high at 610 on admission. International normalized ratio is normal. ASSESSMENT AND PLAN: 1) CHEST PAIN: She is on a chest pain rule out pathway. Will ask her survey questionnaire designer to see her. I would like to have some direction from them as to whether or not they want her continued on the Plavix if she is started on either Eliquis or Xarelto for her pulmonary embolism. 2) LEFT PULMONARY EMBOLISM: Will ask Dr. Zan Bacon, [facility], to see her. I discussed with the patient that she will either need to be on Coumadin or newer anticoagulant. She prefers to be on one of the newer anticoagulants due to less monitoring that is needed. We discussed there is a risk of bleeding from her intestines or in her brain and try to avoid climbing and to come to the emergency room if any headaches or blood in the stool or black stools. The patient voiced understanding. When I saw the patient earlier this week she had some livedo reticularis and I checked antiphospholipid antibodies and those all came back negative. She will probably need a more complete hypocoagulable work up after she is finished three to six months of anticoagulation. 3) HISTORY OF ANXIETY: Will continue with her home medications. 4) FRACTURE OF HER LEFT FIFTH PROXIMAL PHALANX: She is following up with ortho as an outpatient and has a splint in place. 5) RIGHT ARM NUMBNESS: It is unclear if this is due to cardiac etiology or neurologic etiology. She does have an outpatient neurology appointment coming up early in December.
[2018-12-03] MEDS ORDERED: NON-FORMULARY ITEM (Citalopram Hydrobromide [Citalopram Hbr] 40 MG) PO SCH (10:00)
[2018-12-03] MEDS: ceLEXa 20 MG PO SCH (10:31)
[2018-12-03] MEDS: Lopressor 25MG Tab PO SCH ×2 (10:31→22:39)
[2018-12-03] MEDS: Protonix 40MG Tablet PO SCH (10:32)
[2018-12-03] MEDS: Colace 100 MG PO SCH ×2 (10:32→22:39)
[2018-12-03] MEDS: ENOXAPARIN SODIUM SQ SCH ×2 (10:32→22:39)
[2018-12-03] MEDS: Carafate 1 GM PO SCH ×3 (12:21→22:39)
--- NOTE | 2018-12-03 14:21 | XRAY ---
Indication: Pulmonary embolus. Two-dimensional sonogram and color Doppler imaging of the major venous vessels of the left and right leg was performed. Comparison: November 30, 2018. Again no thrombus seen in the examined deep venous vessels of the left and right leg including greater saphenous vein. Veins demonstrate normal compressibility. Venous waveforms are normal with and without augmentation. Impression: Left and right legs again negative for DVT.
[2018-12-03] MEDS: Sodium Chloride 0.9% 1000 ML 1,000 ML IV SCH (14:58)
[2018-12-03] MEDS ORDERED: PHARMACY DOSING REQUEST MC ONE (18:42)
[2018-12-03] MEDS ORDERED: LOVASTATIN 80 MG PO SCH (22:00)
[2018-12-03] MEDS: ZOCOR 20MG PO SCH (22:39)
[2018-12-04] MEDS: Carafate 1 GM PO SCH ×4 (08:14→21:15)
[2018-12-04] MEDS: Colace 100 MG PO SCH ×2 (08:15→21:14)
[2018-12-04] MEDS: ceLEXa 20 MG PO SCH (08:15)
[2018-12-04] MEDS: Protonix 40MG Tablet PO SCH (08:15)
[2018-12-04] MEDS: TYLENOL 325 MG PO PRN ×2 (08:21→21:11)
[2018-12-04] MEDS: ELIQUIS 2.5 MG TABLET PO SCH ×2 (10:00→21:12)
[2018-12-04] MEDS: Lopressor 25MG Tab PO SCH ×2 (10:00→21:13)
[2018-12-04] MEDS ORDERED: Miralax Powder 17GM PACKET PO PRN (11:20)
--- NOTE | 2018-12-04 14:37 | PCM.NOTE ---
Date and Time: 12/04/18 1432 Subjective Assessment: Pt was seen by Dr. Carmelo Rinaldi in telecardiology yesterday, thank you, who wanted to d/c her plavix and start her on Eliquis. Dr. Zan Bacon is to see the pt today, thank you very much. She says she has intermittent chest pain which is sharp, but not having any now. Worse with inspiration. Analilia po. - Review of Systems Cardiac: Chest Pain Musculoskeletal: Injury (finger) Objective Exam General Appearance: no apparent distress, alert Neurologic Exam: oriented x 3, cooperative Skin Exam: normal color, warm, dry, No rash Respiratory Exam: normal breath sounds, lungs clear, No crackles/rales, No rhonchi, No wheezing Cardiovascular Exam: regular rate/rhythm, normal heart sounds, No murmur Gastrointestinal/Abdomen Exam: soft, normal bowel sounds, No tenderness, No distention, No mass, No guarding, No rebound Extremity Exam: other (finger in splint), No pedal edema, No swelling Back Exam: normal inspection, No rash OBJECTIVE DATA Vital Signs: Vital Signs - 24 hr Temp Pulse Resp BP Pulse Ox 12/04/18 12:00 18 12/04/18 11:59 98.1 F 60 18 114/56 95 12/04/18 08:16 70 18 94 L 12/04/18 08:00 18 12/04/18 07:21 98.4 F 67 18 130/75 95 12/04/18 04:00 98.6 F 79 18 130/63 92 L 12/04/18 00:00 99.4 F 77 18 115/61 94 L 12/03/18 20:05 71 18 92 L 12/03/18 20:00 98.6 F 77 18 122/62 92 L 12/03/18 16:23 98.4 F 73 20 113/55 93 L 12/03/18 16:00 20 Pain Assessment - Last Documented Pain Intensity 3 Pain Scale Used 0-10 Pain Scale Intake and Output: Intake & Output 12/02/18 12/03/18 12/04/18 12/05/18 11:59 11:59 11:59 11:59 Intake Total 533 2160 480 Output Total 700 1400 Balance -167 760 480 Weight 79.9 kg Radiology Exams: Radiology Procedures Category Date Time Status CHEST 1 VIEW (PORTABLE) Stat Exams 12/02/18 19:39 Completed CHEST WITH CONTRAST [CT] Stat Exams 12/02/18 20:29 Completed VENOUS BILATERAL EXTREMITY [US] Routine Exams 12/03/18 14:08 Completed Multi-Disciplinary Progress Notes: Multi-Disciplinary Progress Notes 12/04/18 08:59 Case Management Note by Rose Zuñiga Addendum entered by Rose Zuñiga 12/04/18 09:06: DR. PEREZ RECOMMENDED TO D/C PLANNING ON 12/03 THAT AFTER CONSULTS WITH PULMONOLOGY AND CARDIOLOGY, IF THEY ARE OKAY WITH A D/C, PATIENT CAN D/C HOME. Original Note: DISCHARGE PLAN REVIEWED. PT LIVES AT HOME ALONE AND IS NORMALLY INDEPENDENT OF ALL ADL'S, SHE HAS BEEN ON PLAVIX THERAPY. KIERRA CHECKED WITH [facility] ON 2018 AND HER INSURANCE WILL COVER EITHER XARELTO OR ELIQUIS. PLAN IS TO D/C HOME WITH SELF CARE IN PRE EPISODIC CONDITIONS. WILL CONTINUE TO MONITOR. PRIMARY NURSE WILL CONTACT FOR ANY ISSUES. Initialized on 12/04/18 08:59 - END OF NOTE Assessment/Plan (1) Pulmonary embolism Current Visit: Yes Status: Acute Qualifiers: Pulmonary embolism type: other Chronicity: acute Acute cor pulmonale presence: without acute cor pulmonale Qualified Code(s): I26.99 - Other pulmonary embolism without acute cor pulmonale Assessment & Plan: She is now on Eliquis - I will write out rx today and encouraged pt to get it filled at [facility] today as they will be closed tomorrow. 10mg po BID x 7d then 5mg po BID. Await any further recommendations from Dr. Bacon. Code(s): I26.99 - OTHER PULMONARY EMBOLISM WITHOUT ACUTE COR PULMONALE (2) CAD (coronary artery disease) Current Visit: Yes Status: Chronic Qualifiers: Coronary Disease-Associated Artery/Lesion type: [place] artery [place] vs. transplanted heart: beaver heart Associated angina: without angina Qualified Code(s): I25.10 - Atherosclerotic heart disease of [place] coronary artery without angina pectoris Assessment & Plan: Per Dr. Carmelo Rinaldi ok to stop the plavix. Code(s): I25.10 - ATHSCL HEART DISEASE OF [place] CORONARY ARTERY W/O ANG PCTRS (3) Chest pain, rule out acute myocardial infarction Current Visit: No Status: Acute Onset Date: ~10/06/17 Assessment & Plan: LA ruled out with troponins neg x 5. Likely due to PE. Code(s): R07.9 - CHEST PAIN, UNSPECIFIED (4) Constipation Current Visit: Yes Status: Acute Qualifiers: Constipation type: slow transit constipation Qualified Code(s): K59.01 - Slow transit constipation Assessment & Plan: added miralax. Code(s): K59.00 - CONSTIPATION, UNSPECIFIED (5) Paresthesia Current Visit: Yes Status: Chronic Assessment & Plan: R arm. Has been worked up by Dr. Perez including TSH, B12, APA recently. Will just add folate and RPR while she's here. Code(s): R20.2 - PARESTHESIA OF SKIN
[2018-12-04] MEDS: ZOCOR 20MG PO SCH (21:19)
[2018-12-04] MEDS: Sodium Chloride 0.9% 1000 ML 1,000 ML IV SCH (23:54)
[2018-12-05] MEDS: Sodium Chloride 0.9% 1000 ML 1,000 ML IV SCH (00:39)
[2018-12-05] MEDS: TYLENOL 325 MG PO PRN (03:16)
[2018-12-05] MEDS: Carafate 1 GM PO SCH ×2 (07:48→12:00)
[2018-12-05] MEDS: Protonix 40MG Tablet PO SCH (09:06)
[2018-12-05] MEDS: ceLEXa 20 MG PO SCH (09:06)
[2018-12-05] MEDS: Colace 100 MG PO SCH (09:06)
[2018-12-05] MEDS: Lopressor 25MG Tab PO SCH (09:06)
[2018-12-05] MEDS: ELIQUIS 2.5 MG TABLET PO SCH (09:06)
--- NOTE | 2018-12-05 12:41 | PCM.DS ---
Discharge Summary Date of Admission: 12/02/18 23:28 Admitting Physician: EVE PEREZ Consults: Consults on Case 12/03/18 08:39 Consult Pulmonology ROUTINE 12/03/18 08:40 Consult Cardiology ROUTINE Primary Care Provider: EVE PEREZ Allergies Allergies morphine Allergy (Intermediate, Verified 12/02/18 19:25) Hives penicillin G Allergy (Intermediate, Verified 12/02/18 19:25) Hives ibuprofen Allergy (Verified 12/02/18 19:25) Rash Hospital Summary - Hospital Course Hospital Course: Pt is 53 yo female pt of Dr. Perez with bipolar disorder who came to ER with CP and was found to have nonobstructing pulmonary emboli. She was started on lovenox treatment dose. When Dr. Perez saw her the next morning, she discussed coumadin vs a newer anticoagulant, and pt wanted the latter. Dr. Carmelo Rinaldi was consulted about whether to continue the plavix; he stopped the plavis and started her on Eliquis. Pt was able to get her Eliquis from [facility] and has it at bedside. Dr. Bacon was also consulted but was unable to reach the hospital yesterday; he will f/u outpatient if desired. I have left a message for Dr. Perez in case she wants the pt to f/u with him. Today the pt is denying chest pain unless she breathes deeply. Has some intermittent SOB but she states that is chronic. She feels fine about going home today. She will see Dr. Carmelo Rinaldi on December 09. - Vitals & Intake/Output Vital Signs: Vital Signs Temperature 98.1 F 12/05/18 07:20 Pulse Rate 81 12/05/18 07:48 Respiratory Rate 16 12/05/18 12:00 Blood Pressure 114/67 12/05/18 07:20 O2 Sat by Pulse Oximetry 92 L 12/05/18 07:48 Intake & Output: Intake & Output 12/03/18 12/04/18 12/05/18 12/06/18 11:59 11:59 11:59 11:59 Intake Total 533 2160 2856 Output Total 700 1400 3000 Balance -167 760 -144 Weight 79.9 kg - Lab Result Diagrams: 12/03/18 04:55 12/03/18 04:55 Lab Results-Last 24 Hrs: Lab Results-Last 24 Hours 12/04/18 Range/Units 15:17 Folic Acid 8.88 (2.76 - >20) ng/mL - Radiology Exams Ordered Rad Exams-Entire Visit: Radiology Procedures Category Date Time Status VENOUS BILATERAL EXTREMITY [US] Routine Exams 12/03/18 14:08 Completed - Procedures and Test Procedures and Tests throughout Hospitalization: Therapy Orders & Screens 12/03/18 00:53 Smoking Cessation Education ONCE Comment: Diagnosis: pulmonary embolism, CP Smoking Status: Current every day smoker How long have you smoked: 38 Have you smoked in the past 12 months: Yes Approximately how many cigarettes per day: 1/2 PPD Do you dip or chew tobacco: No 12/03/18 02:51 Respiratory Therapy Assessment DAILY Comment: Diagnosis: pulmonary embolism, CP 12/05/18 12:25 Incentive Spirometry UD Comment: Diagnosis: pulmonary embolism, CP Discharge Exam General Appearance: no apparent distress, alert Neurologic Exam: oriented x 3, cooperative Eye Exam: eyes nml inspection Ears, Nose, Throat Exam: moist mucous membranes Neck Exam: normal inspection Respiratory Exam: normal breath sounds, lungs clear, No crackles/rales, No rhonchi, No wheezing Cardiovascular Exam: regular rate/rhythm, normal heart sounds, No murmur Gastrointestinal/Abdomen Exam: soft, normal bowel sounds, No tenderness, No distention, No guarding, No rebound Extremity Exam: normal inspection, No pedal edema, No swelling Skin Exam: normal color, warm, dry, No rash Final Diagnosis/Problem List - Final Discharge Diagnosis/Problem (1) Pulmonary embolism Current Visit: Yes Status: Acute Assessment & Plan: home on [facility]. F/u with Dr. Perez in [address] Carmelo Rinaldi on 12/09/18. May need f/u with Dr. Bacon at Dr. Perez' discretion. Incentive spirometer to keep her expanding her lungs, as she has pain with inspiration at times. Code(s): I26.99 - OTHER PULMONARY EMBOLISM WITHOUT ACUTE COR PULMONALE (2) CAD (coronary artery disease) Current Visit: Yes Status: Chronic Assessment & Plan: Plavix stopped per Dr. Rinaldi. Code(s): I25.10 - ATHSCL HEART DISEASE OF [place] CORONARY ARTERY W/O ANG PCTRS (3) Chest pain, rule out acute myocardial infarction Current Visit: No Status: Resolved Onset Date: ~10/06/17 Assessment & Plan: PA was ruled out with negative troponins x 5. Code(s): R07.9 - CHEST PAIN, UNSPECIFIED (4) Constipation Current Visit: Yes Status: Acute Code(s): K59.00 - CONSTIPATION, UNSPECIFIED (5) Paresthesia Current Visit: Yes Status: Chronic Assessment & Plan: being worked up by Dr. Perez. Code(s): R20.2 - PARESTHESIA OF SKIN (6) Hx of peptic ulcer Current Visit: Yes Status: Acute Assessment & Plan: on carafate and PPI. Advised in d/c instructions to return to ER [facility] for any signs of GI bleeding. Code(s): Z87.11 - PERSONAL HISTORY OF PEPTIC ULCER DISEASE - Discharge Disposition: Home, Self-Care Condition: Good Prescriptions: New Apixaban [Eliquis 2.5 mg Tablet] 5 mg PO BID tablet Apixaban [Eliquis 2.5 mg Tablet] 10 mg PO BID tablet Albuterol Common Canister [Proventil Common Canister] 2 puff IH Q4HPRN PRN #1 unit PRN Reason: Shortness Of Breath/Wheezing Continue Lovastatin 80 mg PO HS Citalopram Hydrobromide [Citalopram HBr] 40 mg PO DAILY Nitroglycerin 0.4 mg Tablet [Nitrostat 0.4 MG Tablet] 0.4 mg SL UD Metoprolol Tartrate 25 mg [Lopressor 25MG Tab] 25 mg PO BID Nitroglycerin 0.4 mg/Hr [Nitro-Dur 0.4 MG/HR] 0.4 mg TOP DAILY Sucralfate 1 gm [Carafate 1 GM] 1 g PO ACHS #120 tablet Docusate Sodium 100 mg [Colace 100 MG] 100 mg PO BID #180 capsule PANTOPRAZOLE 40 mg Tablet [Protonix 40MG Tablet] 40 mg PO DAILY #30 tab Instructions: Pulmonary Embolism (Blood Clot in the Lungs) Additional Instructions: If any vomiting of red, maroon, or black material, or any bloody stool or black tarry stool, go to ER [facility], without delay, as that could signal bleeding and a medical emergency. Please call Dr. Perez or go to ER for any other bleeding you notice. If you fall and hit your head, or are involved in an accident involving head trauma, go to ER [facility]. Follow up with: BRISA BACON [ACTIVE STAFF] - 1 Week KRISTOPHER RINALDI MD [CONSULTING PHYSICIAN] - 1 Week (late January echo due to be done. follow up with Carmen on December 09 at 3:30pm at [facility] ) Forms: Discharge Instructions
[2018-12-05 13:24] VITALS: BP 128/57; PULSE 74; O2SAT 93
[2018-12-06 14:19] LABS: RPR Screen Non Reactive (Non Reactive)
[2018-12-11] MEDS ORDERED: ELIQUIS 2.5 MG TABLET PO SCH (10:00)
== END 2018-12-05 13:35 | disposition home or self-care (01) ==
LOC: ED 19:10 → MED SURG 23:28
PROVIDERS: ADMIT Internal Medicine; ATTEND Internal Medicine
DX: I26.99 Other pulmonary embolism without acute cor pulmonale (principal); R07.9 Chest pain, unspecified; I25.10 Atherosclerotic heart disease of native coronary artery without angina pectoris; K59.00 Constipation, unspecified; R20.2 Paresthesia of skin; E78.5 Hyperlipidemia, unspecified; I10 Essential (primary) hypertension; S62.617D Displaced fracture of proximal phalanx of left little finger, subsequent encounter for fracture with routine healing; Z87.11 Personal history of peptic ulcer disease; F17.200 Nicotine dependence, unspecified, uncomplicated; F31.9 Bipolar disorder, unspecified; Z79.899 Other long term (current) drug therapy
CPT/HCPCS: 36000; 36415; 71045; 71260; 80048; 80053; 82746; 83880; 84484; 85025; 85379; 85610; 86592; 86593; 86780; 93005; 93041; 93268; 93970; 94760; 96360; 96361; 96372; 96374; 96375; 99285; G0378; Q3014; J1650; J2175; J2405; 0065U; A9270-GY

== ENCOUNTER 2019-04-14 21:10 | Emergency (ER) | payer OTHER ==
[2019-04-14] MEDS ORDERED: Zofran 4 MG/2 ML VIAL IV ONE (21:13)
[2019-04-14] MEDS ORDERED: BABY ASPIRIN 81 MG CHEW PO ONE (21:13)
[2019-04-14] MEDS ORDERED: NITRO-BID 2% UD PACKETS TOP ONE (21:13)
--- NOTE | 2019-04-14 21:13 | ERPHSYRPT ---
- History of Present Illness Time Seen by Provider: 04/14/19 21:13 Historian: patient, family Exam Limitations: no limitations Physician History: patient states she has been hurting constantly for last 3 days in her left anterior chest and also has a left upper extremity pain. Patient says she has a history of PE 3 months ago and she is on Eliquis for that.patient also has a history of NV and stent 15 years ago. Timing/Duration: day(s) (3) Activities at Onset: rest Quality: sharpness Location: other (Left Ant chest wall) Chest Pain Radiation: arm Severity of Pain-Max: severe Severity of Pain-Current: severe Modifying Factors: Improves With: nothing Associated Symptoms: No nausea, No vomiting, No palpitations, No heartburn, No abdominal pain, No shortness of breath, No cough, No hurts to breathe, No diaphoresis, No chills, No fever, No fatigue, No weakness, No swelling/lump in chest, No syncope, No rash, No headache, No dizziness, No edema, No back pain Prior Chest Pain/Cardiac Workup: cardiac cath, heart attack, pulmonary embolism Nitro Today/Relief: no nitro taken today Aspirin Treatment Today: no aspirin today Allergies/Adverse Reactions: morphine Allergy (Intermediate, Verified 04/14/19 21:27) Hives penicillin G Allergy (Intermediate, Verified 04/14/19 21:27) Hives ibuprofen Allergy (Verified 04/14/19 21:27) Rash Home Medications: Citalopram Hydrobromide [Citalopram HBr] 40 mg PO DAILY 10/17/16 [History] Lovastatin 80 mg PO HS 10/17/16 [History] Nitroglycerin 0.4 mg Tablet [Nitrostat 0.4 MG Tablet] 0.4 mg SL UD [History] Metoprolol Tartrate 25 mg [Lopressor 25MG Tab] 25 mg PO BID 10/06/17 [ History] Nitroglycerin 0.4 mg/Hr [Nitro-Dur 0.4 MG/HR] 0.4 mg TOP DAILY 10/06/17 [ History] Divalproex Sodium ER 250 mg [Depakote EXTENDED RELEASE 250 MG] 250 mg PO DAILY 10/10/19 [History] Hx Tetanus, Diphtheria Vaccination/Date Given: No Hx Influenza Vaccination/Date Given: Yes Hx Pneumococcal Vaccination/Date Given: No - Review of Systems Constitutional: No Fever, No Chills Eyes: No Symptoms Ears, Nose, & Throat: No Symptoms Respiratory: No Cough, No Dyspnea Cardiac: Chest Pain, No Edema, No Syncope Abdominal/Gastrointestinal: No Abdominal Pain, No Nausea, No Vomiting, No Diarrhea Genitourinary Symptoms: No Dysuria Musculoskeletal: Other (left upper extremity pain), No Back Pain, No Neck Pain Skin: No Rash Neurological: No Dizziness, No Focal Weakness, No Sensory Changes Psychological: No Symptoms Endocrine: No Symptoms All Other Systems: Reviewed and Negative - Past Medical History Pertinent Past Medical History: Yes Neurological History: TIA ENT History: Cataracts Cardiac History: Angina, Deep Vein Thrombosis, High Cholesterol, Hypertension, Other Respiratory History: No Pertinent History Endocrine Medical History: Hypoglycemia Musculoskeletal History: No Pertinent History GI Medical History: Stomach Cancer, Ulcer, Other History: No Pertinent History Psycho-Social History: Anxiety, Panic Disorder Female Reproductive Disorders: Cervical Cancer Other Medical History: coronary spasms, mitrovalve prolapse, syncope, "bowel blockage", and a pacemaker/defib placed and removed, former alcoholic - Past Surgical History Past Surgical History: Yes Cardiac: Internal Defibrillator, Pacemaker, Other Respiratory: No Pertinent History Gastrointestinal: No Pertinent History, Bowel Surgery Genitourinary: No Pertinent History Musculoskeletal: No Pertinent History Female Surgical History: Hysterectomy Other Surgical History: pacemaker/defib placed and removed, collar bone - Social History Smoking Status: Current every day smoker How long have you smoked: 38 Exposure to second hand smoke: Yes Drug Use: none Patient Lives Alone: No - Nursing Vital Signs Nursing Vital Signs: Initial Vital Signs Temperature 99.9 F 04/14/19 21:12 Pulse Rate 99 H 04/14/19 21:12 Respiratory Rate 16 04/14/19 21:12 Blood Pressure 113/83 04/14/19 21:12 O2 Sat by Pulse Oximetry 98 04/14/19 21:12 Pain Scale Pain Intensity 5 - Physical Exam General Appearance: no apparent distress, alert Eye Exam: PERRL/EOMI, eyes nml inspection Ears, Nose, Throat Exam: normal ENT inspection, moist mucous membranes Neck Exam: normal inspection, non-tender, supple, full range of motion, No meningismus Respiratory Exam: normal breath sounds, lungs clear, airway intact, No chest tenderness, No respiratory distress, No diminished breath sounds Cardiovascular Exam: regular rate/rhythm, normal heart sounds, normal peripheral pulses Gastrointestinal/Abdomen Exam: soft, normal bowel sounds, No tenderness, No mass Back Exam: normal inspection, No CVA tenderness, No vertebral tenderness Extremity Exam: normal inspection, normal range of motion Neurologic Exam: alert, oriented x 3, cooperative, normal mood/affect, sensation nml, No motor deficits Skin Exam: normal color, warm, dry - Course Nursing assessment & vital signs reviewed: Yes EKG Interpreted by Me: RATE ([id number]), Sinus Rhythm, NORMAL AXIS, NORMAL INTERVALS, NORMAL QRS, Q-wave, Other (no acute changes) - CT Exams Chest CT Interpretation: Discussed w/radiologist, Other (Normal) Ordered Tests: Active Orders 24 hr Category Date Time Status Manufacturer STAT Care 04/14/19 21:14 Active EKG-ER Only STAT Care 04/14/19 21:13 Active IV Insertion STAT Care 04/14/19 21:13 Active Oxygen-ED Only Nasal Cannula 2 lpm Care 04/14/19 21:13 Active CHEST WITH CONTRAST [CT] Stat Exams 04/14/19 21:46 Taken CBC W DIFF Stat Lab 04/14/19 21:15 Completed CK-Creatinine Phosphokinase Stat Lab 04/14/19 21:15 Completed CMP Stat Lab 04/14/19 21:15 Completed D-DIMER QUANTITATION Stat Lab 04/14/19 21:15 Completed NT PRO BNP Stat Lab 04/14/19 21:15 Completed PROTIME WITH INR Stat Lab 04/14/19 21:15 Completed PTT Stat Lab 04/14/19 21:15 Completed TROPONIN Stat Lab 04/14/19 21:15 Completed Medication Summary Discontinued Medications Generic Name Dose Route Start Last Admin Trade Name Freq PRN Reason Stop Dose Admin Aspirin 324 mg 04/14/19 21:13 04/14/19 21:25 Baby Aspirin 81 Mg Chew PO 04/14/19 21:14 324 mg STAT ONE Administration Aspirin Confirm 04/14/19 21:24 Baby Aspirin 81 Mg Chew Administered 04/14/19 21:25 Dose 324 mg .ROUTE .STK-MED ONE Hydromorphone HCl 1 mg 04/14/19 21:25 04/14/19 21:29 Hydromorphone 1 Mg/Ml Ampule IV 04/14/19 21:26 1 mg STAT ONE Administration Hydromorphone HCl Confirm 04/14/19 21:28 Hydromorphone 1 Mg/Ml Ampule Administered 04/14/19 21:29 Dose 1 mg .ROUTE .STK-MED ONE Nitroglycerin 1 gm 04/14/19 21:13 04/14/19 21:26 Nitro-Bid 2% Ud Packets TOP 04/14/19 21:14 1 gm STAT ONE Administration Nitroglycerin Confirm 04/14/19 21:25 Nitro-Bid 2% Ud Packets Administered 04/14/19 21:26 Dose 1 gm .ROUTE .STK-MED ONE Ondansetron HCl 4 mg 04/14/19 21:13 04/14/19 21:26 Zofran 4 Mg/2 Ml Vial IV 04/14/19 21:14 4 mg STAT ONE Administration Ondansetron HCl Confirm 04/14/19 21:24 Zofran 4 Mg/2 Ml Vial Administered 04/14/19 21:25 Dose 4 mg .ROUTE .STK-MED ONE Lab/Rad Data: Laboratory Result Diagrams 04/14/19 21:15 04/14/19 21:15 Laboratory Results 04/14/19 04/14/19 04/14/19 Range/Units 21:15 21:15 21:15 WBC 11.2 H (4.0-10.5) K/mm3 RBC 4.15 (4.1-5.4) M/mm3 Hgb 13.0 (12.0-16.0) gm/dl Hct 40.2 (35-47) % MCV 96.9 (78-100) fl MCH 31.3 (26-32) pg MCHC 32.3 (32-36) g/dl RDW 15.0 H (11.5-14.0) % Plt Count 354 (150-450) K/mm3 MPV 10.6 H (6-9.5) fl Gran % 37.8 (36.0-66.0) % Eos # (Auto) 0.12 (0-0.5) Absolute Lymphs (auto) 5.50 H (1.0-4.6) Absolute Monos (auto) 1.30 (0.0-1.3) Lymphocytes % 49.2 H (24.0-44.0) % Monocytes % 11.6 (0.0-12.0) % Eosinophils % 1.1 (0.00-5.0) % Basophils % 0.3 (0.0-0.4) % Absolute Granulocytes 4.24 (1.4-6.9) Basophils # 0.03 (0-0.4) PT 11.9 (9.95-12.35) SECONDS INR 1.05 (0.8-3.0) APTT 34.6 (25.3-37.0) SECONDS D-Dimer < 215 L (215-500) ng/mL Sodium 143 (137-145) mmol/L Potassium 4.0 (3.5-5.1) mmol/L Chloride 107 (98-107) mmol/L Carbon Dioxide 27 (22-30) mmol/L Anion Gap 13.4 (5-15) MEQ/L BUN 16 (7-17) mg/dL Creatinine 0.76 (0.52-1.04) mg/dL Estimated GFR > 60.0 ML/MIN Glucose 126 H (74-106) mg/dL Calcium 9.2 (8.4-10.2) mg/dL Total Bilirubin 0.30 (0.2-1.3) mg/dL AST 28 (14-36) U/L ALT 23 (0-35) U/L Alkaline Phosphatase 79 (38-126) U/L Creatine Kinase 42 (30-135) U/L Troponin I < 0.012 (0.000-0.034) ng/mL NT-Pro-B Natriuret Pep 120 (0-900) pg/mL Serum Total Protein 7.8 (6.3-8.2) g/dL Albumin 4.2 (3.5-5.0) g/dL - Progress Progress: improved Air Movement: good Progress Note: 04/14/19 22:29 patient asymptomatic. No life oriented and in condition. I advised admission. Patient refused. I explained the risk. Patient's boyfriend in the room. The understood. They're leaving AMA. 04/14/19 22:30 aadvised patient to follow up with PCP regarding Eliquis Blood Culture(s) Obtained: No Antibiotics given: No Counseled pt/family regarding: lab results, diagnosis, need for follow-up, smoking cessation - Departure Departure Disposition: AMA Clinical Impression: Chest pain Condition: Good Critical Care Time: No Referrals: EVE PEREZ [Primary Care Provider] - Instructions: Chest Pain (DC)
[2019-04-14] MEDS ORDERED: Zofran 4 MG/2 ML VIAL ONE (21:24)
[2019-04-14] MEDS ORDERED: BABY ASPIRIN 81 MG CHEW ONE (21:24)
[2019-04-14 21:25] LABS: Absolute Neutrophil Ct (ANC) 4.24 (1.4-6.9); BASOPHIL % 0.3 % (0.0-0.4); Basophil (Absolute #) 0.03 (0-0.4); Eosinophil % 1.1 % (0.00-5.0); Eosinophil (Absolute #) 0.12 (0-0.5); Hematocrit 40.2 % (35-47); Lymphocytes % 49.2 % (24.0-44.0); Mean Cell Volume 96.9 fl (78-100); Mean Corpuscular Hemoglobin 31.3 pg (26-32); Mean Corpuscular Hgb Concent. 32.3 g/dl (32-36); Mean Platelet Volume 10.6 fl (6-9.5); Monocytes % 11.6 % (0.0-12.0); Neutrophil % 37.8 % (36.0-66.0); Platelet Count 354 K/mm3 (150-450); Red Blood Count 4.15 M/mm3 (4.1-5.4); White Blood Count 11.2 K/mm3 (4.0-10.5)
[2019-04-14] MEDS ORDERED: Hydromorphone 1 mg/ml Ampule IV ONE (21:25)
[2019-04-14] MEDS ORDERED: NITRO-BID 2% UD PACKETS ONE (21:25)
[2019-04-14 21:27] VITALS: O2SAT 98
[2019-04-14] MEDS ORDERED: Hydromorphone 1 mg/ml Ampule ONE (21:28)
[2019-04-14 21:34] LABS: INR 1.05 (0.8-3.0); PROTIME 11.9 SECONDS (9.95-12.35)
[2019-04-14 21:36] LABS: PTT 34.6 SECONDS (25.3-37.0)
[2019-04-14 21:48] LABS: D-DIMER QUANTITATION < 215 ng/mL (215-500)
[2019-04-14 21:49] LABS: ALBUMIN 4.2 g/dL (3.5-5.0); ALKALINE PHOSPHATASE 79 U/L (38-126); ANION GAP 13.4 MEQ/L (5-15); BLOOD UREA NITROGEN 16 mg/dL (7-17); CHLORIDE 107 mmol/L (98-107); CK-Creatinine Phosphokinase 42 U/L (30-135); Calcium 9.2 mg/dL (8.4-10.2); Carbon Dioxide 27 mmol/L (22-30); Creatinine 1 0.76 mg/dL (0.52-1.04); Glucose 126 mg/dL (74-106); NT PRO BNP 120 pg/mL (0-900); SGOT/AST 28 U/L (14-36); SGPT/ALT 23 U/L (0-35); SODIUM 143 mmol/L (137-145); Total Protein 7.8 g/dL (6.3-8.2)
[2019-04-14 21:50] LABS: TROPONIN < 0.012 ng/mL (0.000-0.034)
[2019-04-14 22:54] VITALS: BP 135/103; PULSE 80
--- NOTE | 2019-04-15 08:37 | XRAY ---
Indication: Chest pain/pressure, short of breath, and left arm pain. Multiple contiguous axial images obtained through the chest using 80 cc Isovue 370 contrast and PE protocol. Comparison: December 02, 2018. There is good opacification of the pulmonary arteries to include the lobar and segmental branches. No filling defect or pulmonary embolus. Heart is not enlarged. Aorta is again minimally arteriosclerotic without aneurysm/dissection. The pathologic mediastinal/hilar lymphadenopathy. Examination of the lung parenchyma demonstrates mild bilateral dependent atelectasis. Stable minimal bilateral fibrosis/scarring. No suspicious pulmonary mass, infiltrate, or effusion. Bony thorax intact. Limited upper abdomen including adrenal glands are unremarkable. Impression: Negative pulmonary embolus. Stable minimal fibrosis/scarring. No new or acute cardiopulmonary abnormalities. CT DI 12.36
== END 2019-04-14 23:04 | disposition home or self-care (01) ==
LOC: ED 21:10
DX: R07.9 Chest pain, unspecified (principal)
CPT/HCPCS: 36415; 71260; 80053; 82550; 83880; 84484; 85025; 85379; 85610; 85730; 96374; 96375; 99284; 99291; 99292; J1170; J2405; A9270-GY

== ENCOUNTER 2019-05-30 04:12 | Emergency (ER) | payer OTHER ==
[2019-05-30] MEDS ORDERED: BABY ASPIRIN 81 MG CHEW PO ONE (04:43)
[2019-05-30] MEDS ORDERED: Zofran 4 MG/2 ML VIAL IV ONE (04:43)
[2019-05-30] MEDS ORDERED: Sodium Chloride 0.9% 1000 ML 1,000 ML IV STA (04:43)
--- NOTE | 2019-05-30 04:43 | ERPHSYRPT ---
<AYLA BURNETT - Last Filed: 05/30/19 06:51> - History of Present Illness Time Seen by Provider: 05/30/19 04:25 Historian: patient Exam Limitations: no limitations Patient Subjective Stated Complaint: pt to ER with complaints of chest pain / SOB all day. pt has had some weakness and vomiting today. pt with hx of PE. pt is scheduled for dopplar on June 07. Triage Nursing Assessment: pt to ER with complaints of chest pain and SOB all day. Physician History: 53 y/o white female, with h/o pulmonary embolism on eliquis and LA with cardiac stents, presents with recurrent left ant cp described as nonradiating squeezing tightness. pt is allergic to ibuprofen and morphine but can take dilaudid and asa without issues. pt seen here on 04/14/19 for same issue. cp present all day on 05/29/19 and this am. had one episode of vomiting because of pain. pt is a current every day smoker Timing/Duration: yesterday, constant Quality: pressure, tightness Location: other (left ant chest) Chest Pain Radiation: no radiation Severity of Pain-Max: moderate Severity of Pain-Current: moderate Modifying Factors: Improves With: nothing Associated Symptoms: vomiting, No shortness of breath Prior Chest Pain/Cardiac Workup: cardiac cath, echocardiography, heart attack, recently seen/treated (6 weeks ago) Nitro Today/Relief: no nitro taken today Aspirin Treatment Today: no aspirin today Allergies/Adverse Reactions: morphine Allergy (Intermediate, Verified 05/30/19 04:28) Hives penicillin G Allergy (Intermediate, Verified 05/30/19 04:28) Hives ibuprofen Allergy (Verified 05/30/19 04:28) Rash Home Medications: Citalopram Hydrobromide [Citalopram HBr] 40 mg PO DAILY 10/17/16 [History] Lovastatin 80 mg PO HS 10/17/16 [History] Nitroglycerin 0.4 mg Tablet [Nitrostat 0.4 MG Tablet] 0.4 mg SL UD [History] Metoprolol Tartrate 25 mg [Lopressor 25MG Tab] 25 mg PO BID 10/06/17 [ History] Nitroglycerin 0.4 mg/Hr [Nitro-Dur 0.4 MG/HR] 0.4 mg TOP DAILY 10/06/17 [ History] Divalproex Sodium ER 250 mg [Depakote EXTENDED RELEASE 250 MG] 250 mg PO DAILY 04/14/19 [History] Hx Tetanus, Diphtheria Vaccination/Date Given: Yes Hx Influenza Vaccination/Date Given: Yes Hx Pneumococcal Vaccination/Date Given: Yes Immunizations Up to Date: Yes - Review of Systems Constitutional: No Symptoms Eyes: No Symptoms Ears, Nose, & Throat: No Symptoms Respiratory: No Symptoms Cardiac: Chest Pain Abdominal/Gastrointestinal: Vomiting, No Abdominal Pain, No Nausea Genitourinary Symptoms: No Symptoms Musculoskeletal: No Symptoms Skin: No Symptoms Neurological: No Symptoms Psychological: No Symptoms Endocrine: No Symptoms Hematologic/Lymphatic: No Symptoms Immunological/Allergic: No Symptoms All Other Systems: Reviewed and Negative - Past Medical History Pertinent Past Medical History: Yes Neurological History: TIA ENT History: Cataracts Cardiac History: High Cholesterol, Hypertension, Myocardial Infarction (LA) Respiratory History: Pulmonary Embolism Endocrine Medical History: Hypoglycemia Musculoskeletal History: No Pertinent History GI Medical History: Other History: No Pertinent History Psycho-Social History: Anxiety, Panic Disorder Female Reproductive Disorders: Cervical Cancer Other Medical History: coronary spasms, mitrovalve prolapse, syncope, "bowel blockage", and a pacemaker/defib placed and removed, former alcoholic - Past Surgical History Past Surgical History: Yes Cardiac: Internal Defibrillator, Pacemaker, Other Respiratory: No Pertinent History Gastrointestinal: No Pertinent History, Bowel Surgery Genitourinary: No Pertinent History Musculoskeletal: No Pertinent History Female Surgical History: Hysterectomy Other Surgical History: pacemaker/defib placed and removed, collar bone - Social History Smoking Status: Current every day smoker How long have you smoked: 35 years Exposure to second hand smoke: Yes Drug Use: none Patient Lives Alone: No - Female History Hx Now: No - Nursing Vital Signs Nursing Vital Signs: Initial Vital Signs Temperature 100.6 F 05/30/19 04:19 Pulse Rate 95 H 05/30/19 04:19 Respiratory Rate 20 05/30/19 04:19 Blood Pressure 146/74 05/30/19 04:19 O2 Sat by Pulse Oximetry 97 05/30/19 04:19 Pain Scale Pain Intensity 8 - Physical Exam General Appearance: no apparent distress, alert, anxiety Eye Exam: PERRL/EOMI, eyes nml inspection Ears, Nose, Throat Exam: normal ENT inspection, moist mucous membranes Neck Exam: normal inspection, non-tender, supple, full range of motion Respiratory Exam: normal breath sounds, chest tenderness, lungs clear, airway intact, No respiratory distress Cardiovascular Exam: regular rate/rhythm, normal heart sounds, normal peripheral pulses Gastrointestinal/Abdomen Exam: soft, normal bowel sounds, No tenderness Pelvic Exam: not done Rectal Exam: not done Back Exam: normal inspection, normal range of motion, No CVA tenderness, No vertebral tenderness Extremity Exam: normal inspection, normal range of motion, pelvis stable Neurologic Exam: alert, oriented x 3, cooperative, milk and cream grader II-XII nml as tested, normal mood/affect, nml cerebellar function, nml station & gait, sensation nml Skin Exam: normal color, warm, dry Lymphatic Exam: No adenopathy SpO2 Interpretation: normal SpO2: 97 O2 Delivery: Room Air - Course Nursing assessment & vital signs reviewed: Yes EKG Interpreted by Me: RATE (91), Sinus Rhythm, NORMAL AXIS, NORMAL INTERVALS, NORMAL QRS, Other (no change from ekg dated 04/05/19) Ordered Tests: Active Orders 24 hr Category Date Time Status Cutter Operator STAT Care 05/30/19 04:44 Active EKG-ER Only STAT Care 05/30/19 04:43 Active IV Insertion STAT Care 05/30/19 04:43 Active Pulse Oximetry (ED) STAT Care 05/30/19 04:43 Active CHEST 1 VIEW (PORTABLE) Stat Exams 05/30/19 04:43 Completed CHEST WITH CONTRAST [CT] Stat Exams 05/30/19 06:48 Completed BLOOD CULTURE Stat Lab 05/30/19 05:10 Received CBC W DIFF Stat Lab 05/30/19 05:10 Completed CMP Stat Lab 05/30/19 05:10 Completed D-DIMER QUANTITATION Stat Lab 05/30/19 05:10 Completed Lactic Acid Stat Lab 05/30/19 05:20 Completed NT PRO BNP Stat Lab 05/30/19 05:10 Completed TROPONIN Q3H Lab 05/30/19 04:45 Completed TROPONIN Q3H Lab 05/30/19 07:50 Completed TROPONIN Q3H Lab 05/30/19 10:45 Ordered TROPONIN Q3H Lab 05/30/19 13:45 Ordered TROPONIN Q3H Lab 05/30/19 16:45 Ordered Medication Summary Discontinued Medications Generic Name Dose Route Start Last Admin Trade Name Freq PRN Reason Stop Dose Admin Aspirin 324 mg 05/30/19 04:43 05/30/19 05:38 Baby Aspirin 81 Mg Chew PO 05/30/19 04:44 324 mg STAT ONE Administration Aspirin Confirm 05/30/19 05:35 Baby Aspirin 81 Mg Chew Administered 05/30/19 05:36 Dose 324 mg .ROUTE .STK-MED ONE Hydromorphone HCl 1 mg 05/30/19 04:44 05/30/19 05:39 Hydromorphone 1 Mg/Ml Ampule IV 05/30/19 04:45 1 mg STAT ONE Administration Hydromorphone HCl Confirm 05/30/19 05:36 Hydromorphone 1 Mg/Ml Ampule Administered 05/30/19 05:37 Dose 1 mg .ROUTE .STK-MED ONE Sodium Chloride 1,000 mls @ 999 mls/hr 05/30/19 04:43 05/30/19 07:32 Sodium Chloride 0.9% 1000 Ml IV 05/30/19 05:43 Infused .Q1H1M STA Infusion Sodium Chloride Confirm 05/30/19 05:36 Sodium Chloride 0.9% 1000 Ml Administered 05/30/19 05:37 Dose 1,000 mls @ ud .ROUTE .STK-MED ONE Levofloxacin/Dextrose 750 mg in 150 mls @ 100 mls/hr 05/30/19 06:32 05/30/19 08:21 Levofloxacin 750mg/150ml D5w IV 05/30/19 08:01 Infused STAT STA Infusion Levofloxacin/Dextrose Confirm 05/30/19 06:39 Levofloxacin 750mg/150ml D5w Administered 05/30/19 06:40 Dose 750 mg in 150 mls @ ud IV .STK-MED ONE Ondansetron HCl 4 mg 05/30/19 04:43 05/30/19 05:40 Zofran 4 Mg/2 Ml Vial IV 05/30/19 04:44 4 mg STAT ONE Administration Ondansetron HCl Confirm 05/30/19 05:35 Zofran 4 Mg/2 Ml Vial Administered 05/30/19 05:36 Dose 4 mg .ROUTE .STK-MED ONE Lab/Rad Data: Laboratory Result Diagrams 05/30/19 05:10 05/30/19 05:10 Laboratory Results 05/30/19 05/30/19 05/30/19 Range/Units 07:50 05:20 05:10 WBC (4.0-10.5) K/mm3 RBC (4.1-5.4) M/mm3 Hgb (12.0-16.0) gm/dl Hct (35-47) % MCV (78-100) fl MCH (26-32) pg MCHC (32-36) g/dl RDW (11.5-14.0) % Plt Count (150-450) K/mm3 MPV (6-9.5) fl Gran % (36.0-66.0) % Eos # (Auto) (0-0.5) Absolute Lymphs (auto) (1.0-4.6) Absolute Monos (auto) (0.0-1.3) Lymphocytes % (24.0-44.0) % Monocytes % (0.0-12.0) % Eosinophils % (0.00-5.0) % Basophils % (0.0-0.4) % Absolute Granulocytes (1.4-6.9) Basophils # (0-0.4) D-Dimer < 215 L (215-500) ng/mL Sodium (137-145) mmol/L Potassium (3.5-5.1) mmol/L Chloride (98-107) mmol/L Carbon Dioxide (22-30) mmol/L Anion Gap (5-15) MEQ/L BUN (7-17) mg/dL Creatinine (0.52-1.04) mg/dL Estimated GFR ML/MIN Glucose (74-106) mg/dL Lactic Acid 0.9 (0.4-2.0) Calcium (8.4-10.2) mg/dL Total Bilirubin (0.2-1.3) mg/dL AST (14-36) U/L ALT (0-35) U/L Alkaline Phosphatase (38-126) U/L Troponin I < 0.012 (0.000-0.034) ng/mL NT-Pro-B Natriuret Pep (0-900) pg/mL Serum Total Protein (6.3-8.2) g/dL Albumin (3.5-5.0) g/dL Slides for Path Review 05/30/19 05/30/1905/30/19 Range/Units 05:10 05:10 04:45 WBC 14.0 H (4.0-10.5) K/mm3 RBC 3.83 L (4.1-5.4) M/mm3 Hgb 11.9 L (12.0-16.0) gm/dl Hct 37.9 (35-47) % MCV 99.0 (78-100) fl MCH 31.0 (26-32) pg MCHC 31.4 L (32-36) g/dl RDW 13.9 (11.5-14.0) % Plt Count 381 (150-450) K/mm3 MPV 11.1 H (6-9.5) fl Gran % 66.7 H (36.0-66.0) % Eos # (Auto) 0.08 (0-0.5) Absolute Lymphs (auto) 2.96 (1.0-4.6) Absolute Monos (auto) 1.59 H (0.0-1.3) Lymphocytes % 21.2 L (24.0-44.0) % Monocytes % 11.4 (0.0-12.0) % Eosinophils % 0.6 (0.00-5.0) % Basophils % 0.1 (0.0-0.4) % Absolute Granulocytes 9.33 H (1.4-6.9) Basophils # 0.01 (0-0.4) D-Dimer (215-500) ng/mL Sodium 144 (137-145) mmol/L Potassium 4.0 (3.5-5.1) mmol/L Chloride 108 H (98-107) mmol/L Carbon Dioxide 26 (22-30) mmol/L Anion Gap 13.4 (5-15) MEQ/L BUN 15 (7-17) mg/dL Creatinine 0.70 (0.52-1.04) mg/dL Estimated GFR > 60.0 ML/MIN Glucose 116 H (74-106) mg/dL Lactic Acid (0.4-2.0) Calcium 8.8 (8.4-10.2) mg/dL Total Bilirubin 0.40 (0.2-1.3) mg/dL AST 17 (14-36) U/L ALT 10 (0-35) U/L Alkaline Phosphatase 70 (38-126) U/L Troponin I < 0.012 (0.000-0.034) ng/mL NT-Pro-B Natriuret Pep 278 (0-900) pg/mL Serum Total Protein 7.6 (6.3-8.2) g/dL Albumin 3.8 (3.5-5.0) g/dL Slides for Path Review YES - Progress Progress: improved Progress Note: 05/30/19 06:[address] dalal. i reviewed pt care with him. i reviewed pending studies. we added cta chest. he accepts pt. - Departure Clinical Impression: Bronchitis Condition: Good Referrals: EVE PEREZ [Primary Care Provider] - Instructions: Acute Bronchitis Prescriptions: Hydrocodone/APAP 5-325 Tab^^^ [[place] 5-325 Tablet^^^] 1 tab PO Q6HPRN PRN #10 tablet MDD 6 PRN Reason: Pain Cephalexin Mh 500 mg [Keflex 500 mg] 500 mg PO QID 10 Days #40 capsule <SHANTE DALAL - Last Filed: 05/30/19 08:58> - Progress Progress: improved Air Movement: good Blood Culture(s) Obtained: Yes Antibiotics given: Yes Counseled pt/family regarding: lab results, rad results - Departure Departure Disposition: Home Critical Care Time: No
[2019-05-30] MEDS ORDERED: Hydromorphone 1 mg/ml Ampule IV ONE (04:44)
[2019-05-30 05:12] LABS: Absolute Neutrophil Ct (ANC) 9.33 (1.4-6.9); BASOPHIL % 0.1 % (0.0-0.4); Basophil (Absolute #) 0.01 (0-0.4); Eosinophil % 0.6 % (0.00-5.0); Eosinophil (Absolute #) 0.08 (0-0.5); Hematocrit 37.9 % (35-47); Hemoglobin 11.9 gm/dl (12.0-16.0); Lymphocyte (Absolute #) 2.96 (1.0-4.6); Lymphocytes % 21.2 % (24.0-44.0); Mean Corpuscular Hgb Concent. 31.4 g/dl (32-36); Mean Platelet Volume 11.1 fl (6-9.5); Monocyte (Absolute #) 1.59 (0.0-1.3); Monocytes % 11.4 % (0.0-12.0); Neutrophil % 66.7 % (36.0-66.0); Platelet Count 381 K/mm3 (150-450); Red Blood Count 3.83 M/mm3 (4.1-5.4); Red Cell Distribution Width 13.9 % (11.5-14.0)
[2019-05-30] MEDS ORDERED: BABY ASPIRIN 81 MG CHEW ONE (05:35)
[2019-05-30] MEDS ORDERED: Zofran 4 MG/2 ML VIAL ONE (05:35)
[2019-05-30] MEDS ORDERED: Hydromorphone 1 mg/ml Ampule ONE (05:36)
[2019-05-30] MEDS ORDERED: Sodium Chloride 0.9% 1000 ML 1,000 ML ONE (05:36)
[2019-05-30 05:40] LABS: ALBUMIN 3.8 g/dL (3.5-5.0); ALKALINE PHOSPHATASE 70 U/L (38-126); ANION GAP 13.4 MEQ/L (5-15); BLOOD UREA NITROGEN 15 mg/dL (7-17); CHLORIDE 108 mmol/L (98-107); Calcium 8.8 mg/dL (8.4-10.2); Carbon Dioxide 26 mmol/L (22-30); Glucose 116 mg/dL (74-106); NT PRO BNP 278 pg/mL (0-900); SGOT/AST 17 U/L (14-36); SGPT/ALT 10 U/L (0-35); SODIUM 144 mmol/L (137-145); Total Protein 7.6 g/dL (6.3-8.2)
[2019-05-30] MEDS ORDERED: LEVOFLOXACIN 750MG/150ML D5W 750 MG/150 ML BAG IV STA (06:32)
[2019-05-30] MEDS ORDERED: LEVOFLOXACIN 750MG/150ML D5W 750 MG/150 ML BAG IV ONE (06:39)
[2019-05-30 08:35] LABS: Slide Review 1 YES
--- NOTE | 2019-05-30 08:47 | XRAY ---
Indication: Chest pain and short of breath. Vomiting, elevated WBC, and elevated d-dimer. History pulmonary embolus. Multiple contiguous axial images obtained through the chest using 80 cc Isovue 370 contrast and PE protocol. Comparison: April 14, 2019. There is good opacification of the pulmonary arteries to include the lobar and segmental branches. Again no filling defect or pulmonary embolus. Heart is not enlarged. Aorta is normal in course and caliber. No pathologic mediastinal/hilar lymphadenopathy. Lungs demonstrates new bilateral dependent atelectasis, left greater than right. No suspicious pulmonary mass, infiltrate, or effusion. Bony thorax remains intact. Limited upper abdomen remains unremarkable. Impression: Continued negative for pulmonary embolus. Bilateral dependent atelectasis. No acute cardiopulmonary abnormalities. CT DI 10.89
--- NOTE | 2019-05-30 08:49 | XRAY ---
Indication: Chest pain. Comparison: December 02, 2018. Portable chest demonstrates normal heart and lungs. Bony thorax intact. No new/acute findings.
[2019-05-30 09:12] VITALS: BP 100/77; PULSE 77; O2SAT 98
== END 2019-05-30 09:09 | disposition home or self-care (01) ==
LOC: ED 04:12
DX: J40 Bronchitis, not specified as acute or chronic (principal); Z79.899 Other long term (current) drug therapy; I10 Essential (primary) hypertension; Z86.711 Personal history of pulmonary embolism; Z86.73 Personal history of transient ischemic attack (TIA), and cerebral infarction without residual deficits; Z95.810 Presence of automatic (implantable) cardiac defibrillator; Z72.0 Tobacco use
CPT/HCPCS: 36000; 36415; 71045; 71260; 80053; 83605; 83880; 84484; 85025; 85379; 87040; 93005; 93041; 94760; 96360; 96365; 96374; 96375; 99285; J1170; J1956; J2405; A9270-GY

== ENCOUNTER 2022-10-08 17:08 | Emergency (ER) | payer OTHER ==
[2022-10-08 17:27] VITALS: O2SAT 98
[2022-10-08] MEDS ORDERED: TORAdol 30 mg Injection IM ONE (17:41)
[2022-10-08] MEDS ORDERED: TORAdol 30 mg Injection ONE (17:56)
--- NOTE | 2022-10-08 18:15 | ERPHSYRPT ---
- History of Present Illness Time Seen by Provider: 10/08/22 17:35 Source: patient Exam Limitations: no limitations Patient Subjective Stated Complaint: pt here for left lower leg pain for a month now after a fall, Triage Nursing Assessment: pt alert, walked in, resp easy, skin w/d/p. she has swelling to left foot and ankle , also has pain to left knee, Physician History: Patient is a 57-year-old female presents to our ED for evaluation of left leg pain. Patient has a history of PE DVT. She is currently anticoagulated on Eliquis. Patient states she fell approximately 1 month ago. Since then she has been having pain. No recent trauma or fever. Pain is constant. Patient complained specifically at the left knee and left lower leg. No ankle or foot pain. No thigh or hip pain. No BHT or LOC. No neck pain. Cervical spine cleared clinically. Patient voices no other complaints or concerns at this time. Portions of this note were created with voice recognition technology. There may be grammatical, spelling, punctuation or sound alike errors Timing/Duration: week(s) (1 month) Severity: moderate Modifying Factors: Improves With: movement Associated Symptoms: denies symptoms Allergies/Adverse Reactions: morphine Allergy (Intermediate, Verified 10/08/22 17:24) Hives penicillin G Allergy (Intermediate, Verified 10/08/22 17:24) Hives ibuprofen Allergy (Verified 10/08/22 17:24) Rash Home Medications: Citalopram Hydrobromide [Citalopram HBr] 40 mg PO DAILY 10/17/16 [History] Lovastatin 80 mg PO HS 10/17/16 [History] Nitroglycerin 0.4 mg Tablet [Nitrostat 0.4 MG Tablet] 0.4 mg SL UD 10/17/16 [History] Metoprolol Tartrate 25 mg [Lopressor 25MG Tab] 25 mg PO BID 10/06/17 [History] Nitroglycerin 0.4 mg/Hr [Nitro-Dur 0.4 MG/HR] 0.4 mg TOP DAILY 10/06/17 [History] Divalproex Sodium ER 250 mg [Depakote EXTENDED RELEASE 250 MG] 250 mg PO DAILY 04/14/19 [History] Hx Tetanus, Diphtheria Vaccination/Date Given: Yes Hx Influenza Vaccination/Date Given: Yes Hx Pneumococcal Vaccination/Date Given: Yes Immunizations Up to Date: Yes Travel Risk - International Travel Have you traveled outside of the country in past 3 weeks: No - Coronavirus Screening Are you exhibiting any of the following symptoms?: No Close contact with a COVID-19 positive Pt in past 14-21 Days: No - Vaccine Status Have you recieved a Covid-19 vaccination: No - Review of Systems Constitutional: No Symptoms, No Fever, No Chills Eyes: No Symptoms Ears, Nose, & Throat: No Symptoms Respiratory: No Symptoms, No Cough, No Dyspnea Cardiac: No Symptoms, No Chest Pain, No Edema, No Syncope Abdominal/Gastrointestinal: No Symptoms, No Abdominal Pain, No Nausea, No Vomiting, No Diarrhea Genitourinary Symptoms: No Symptoms, No Dysuria Musculoskeletal: No Symptoms, No Back Pain, No Neck Pain Skin: No Symptoms, No Rash Neurological: No Symptoms, No Dizziness, No Focal Weakness, No Sensory Changes Psychological: No Symptoms Endocrine: No Symptoms Hematologic/Lymphatic: No Symptoms Immunological/Allergic: No Symptoms All Other Systems: Reviewed and Negative - Past Medical History Pertinent Past Medical History: Yes Neurological History: TIA ENT History: Cataracts Cardiac History: Arrhythmia, High Cholesterol, Hypertension, Myocardial Infarction ([place]) Respiratory History: Pulmonary Embolism Endocrine Medical History: Hypoglycemia Musculoskeletal History: No Pertinent History GI Medical History: Other History: No Pertinent History Psycho-Social History: Anxiety, Panic Disorder Female Reproductive Disorders: Cervical Cancer Other Medical History: coronary spasms, mitrovalve prolapse, syncope, "bowel blockage", and a pacemaker/defib placed and removed, former alcoholic - Past Surgical History Past Surgical History: Yes Cardiac: Internal Defibrillator, Pacemaker, Other Respiratory: No Pertinent History Gastrointestinal: No Pertinent History, Bowel Surgery Genitourinary: No Pertinent History Musculoskeletal: No Pertinent History Female Surgical History: Hysterectomy Other Surgical History: pacemaker/defib placed and removed, collar bone - Social History Smoking Status: Current every day smoker How long have you smoked: 35 years Exposure to second hand smoke: Yes Drug Use: none Patient Lives Alone: No - Nursing Vital Signs Nursing Vital Signs: Initial Vital Signs Pulse Rate 99 H 10/08/22 17:26 Respiratory Rate 18 10/08/22 17:26 Blood Pressure 127/107 10/08/22 17:26 O2 Sat by Pulse Oximetry 98 10/08/22 17:26 Pain Scale Pain Intensity 5 - Physical Exam General Appearance: no apparent distress, alert Eye Exam: PERRL/EOMI, eyes nml inspection Ears, Nose, Throat Exam: normal ENT inspection, TMs normal, pharynx normal, moist mucous membranes Neck Exam: normal inspection, non-tender, supple, full range of motion Respiratory Exam: normal breath sounds, lungs clear, No respiratory distress Cardiovascular Exam: regular rate/rhythm, normal heart sounds, normal peripheral pulses Gastrointestinal/Abdomen Exam: soft, normal bowel sounds, No tenderness, No mass Back Exam: normal inspection, normal range of motion, No CVA tenderness, No vertebral tenderness Extremity Exam: normal inspection, normal range of motion, pelvis stable Neurologic Exam: alert, oriented x 3, cooperative, normal mood/affect, nml cerebellar function, nml station & gait, sensation nml, No motor deficits Skin Exam: normal color, warm, dry, No rash Lymphatic Exam: No adenopathy SpO2 Interpretation: normal SpO2: 98 O2 Delivery: Room Air - Course Nursing assessment & vital signs reviewed: Yes - Radiology Exams Lower Leg X-ray Interpretation: Interpreted by me (Fractures or dislocations. Radiopaque foreign body observed anterior tibia soft tissue) - Radiology Ultrasound Exam Venous Lower Extremity Ultrasound: discussed w/radiologist (Negative DVT) Ordered Tests: Active Orders 24 hr Category Date Time Status LOWER LEG Stat Exams 10/08/22 18:12 Taken VENOUS UNILAT/LIMITED EXTREMIT [US] Stat Exams 10/08/22 17:40 Taken Medication Summary Discontinued Medications Generic Name Dose Route Start Last Admin Trade Name Jeff PRN Reason Stop Dose Admin Ketorolac Tromethamine 30 mg 10/08/22 17:41 10/08/22 17:59 Ketorolac Tromethamine 30 Mg/Ml Inj IM 10/08/22 17:42 30 mg STAT ONE Administration Ketorolac Tromethamine Confirm 10/08/22 17:56 Ketorolac Tromethamine 30 Mg/Ml Inj Administered 10/08/22 17:57 Dose 30 mg .ROUTE .STK-MED ONE - Progress Progress: improved Progress Note: Patient is a 57-year-old female presents to emergency department for evaluation of pain to her left leg. Patient fell approximately 1 month ago. Since then patient has had pain in her left leg. Patient currently anticoagulated on Eliquis. X-ray negative for fracture dislocation. Ultrasound left lower extremity negative for DVT. Patient's involved extremity is neurovascular tact distally. Compartments are soft. Cap refill less than 2 seconds. Patient agrees to bilateral axillary crutches. Patient referred to orthopedic clinic for further evaluation and treatment. Compartments are soft. Cap refill less than 2 seconds. No signs of infection. No cellulitis. No lymphangitis. No reactive lymphadenopathy. Complexity of problems addressed is moderate, new diagnosis with uncertain prognosis. No critical care time. Complexity of data reviewed and analyzed is moderate. Dr. Thompson independently reviewed the x-ray performed. Risk of complication and or risk morbidity/mortality of patient management is moderate. Patient received intramuscular prescription medication for pain control. Patient reassessed. Pain significantly improved. Patient agrees to follow-up with orthopedic clinic tomorrow as scheduled. Medicare established via shared decision making process. No social determinants of health impede patient's follow-up. Significant other at bedside is supportive and will ensure that patient follows up accordingly. Vital stable. Portions of this note were created with voice recognition technology. There may be grammatical, spelling, punctuation or sound alike errors 10/08/22 20:23 Counseled pt/family regarding: diagnosis, need for follow-up, rad results - Departure Departure Disposition: Home Clinical Impression: Leg swelling Condition: Stable Critical Care Time: No Referrals: DOLORES CARBALLO NP [Primary Care Provider] - Follow up/PCP as directed Instructions: Dependent Edema (DC) Outpatient Orders: Ortho Referral Time Frame: 1 Day, Facility: [facility], Location: ORTHO CLINIC
[2022-10-08 20:09] VITALS: BP 129/67; PULSE 75
--- NOTE | 2022-10-09 08:33 | XRAY ---
Indication: Pain and swelling following fall 3 weeks ago. Comparison: None 2 view left lower leg demonstrates osteopenia and mild medial ankle soft tissue swelling, and a few tiny soft tissue calcified granulomas. No other bony, articular, or soft tissue abnormalities.
--- NOTE | 2022-10-09 08:35 | XRAY ---
Indication: Pain. Two-dimensional sonogram and color Doppler imaging of the major venous vessels of the left leg performed. Comparison: None No thrombus seen in the examined deep venous vessels of the left leg including greater saphenous vein. Veins demonstrate normal compressibility. Venous waveforms are normal with and without augmentation. Impression: Left leg negative for DVT. Comment: Preliminary report was given.
== END 2022-10-08 20:29 | disposition home or self-care (01) ==
LOC: ED 17:08
DX: M79.89 Other specified soft tissue disorders (principal); M79.662 Pain in left lower leg; M25.562 Pain in left knee; E78.5 Hyperlipidemia, unspecified; I10 Essential (primary) hypertension; Z79.01 Long term (current) use of anticoagulants; Z79.899 Other long term (current) drug therapy; Z28.310 Unvaccinated for COVID-19; Z72.0 Tobacco use
CPT/HCPCS: 73590; 93971; 96372; 99283; J1885

== ENCOUNTER 2022-12-26 15:40 | Emergency (ER) | payer OTHER ==
[2022-12-26 15:48] VITALS: O2SAT 98
[2022-12-26] MEDS ORDERED: Sodium Chloride 0.9% 1000 ML 1,000 ML IV STA (15:53)
[2022-12-26] MEDS ORDERED: BABY ASPIRIN 81 MG CHEW PO ONE (15:53)
[2022-12-26 16:10] LABS: Absolute Neutrophil Ct (ANC) 7.82 x10^3/uL (1.4-6.9); BASOPHIL % 0.4 % (0.0-0.4); Basophil (Absolute #) 0.05 x10^3/uL (0-0.4); Eosinophil % 0.9 % (0.00-5.0); Eosinophil (Absolute #) 0.13 x10^3/uL (0-0.5); Hematocrit 42.2 % (35-47); Hemoglobin 13.7 g/dL (12.0-16.0); IMMATURE GRAN # 0.04 x10^3u/L (0.00-0.03); IMMATURE GRAN % 0.3 % (0.00-0.4); Lymphocyte (Absolute #) 4.81 x10^3/uL (1.0-4.6); Lymphocytes % 35.1 % (24.0-44.0); Mean Cell Volume 91.7 fL (78-100); Mean Corpuscular Hemoglobin 29.8 pg (26-32); Mean Corpuscular Hgb Concent. 32.5 g/dL (32-36); Mean Platelet Volume 10.3 fL (7.5-11.0); Monocyte (Absolute #) 0.85 x10^3/uL (0.0-1.3); Monocytes % 6.2 % (0.0-12.0); Neutrophil % 57.1 % (36.0-66.0); Platelet Count 391 x10^3/uL (150-450); Red Cell Distribution Width 14.7 % (11.5-14.0); White Blood Count 13.7 x10^3/uL (4.0-10.5)
[2022-12-26 16:26] LABS: INR 0.94 (0.8-3.0); PROTIME 10.3 SECONDS (9.4-12.5)
--- NOTE | 2022-12-26 16:32 | XRAY ---
Indication: Chest pain. Pulmonary embolus. Currently on blood thinner therapy. Multiple contiguous axial images obtained through the chest using 100 cc Isovue 370 contrast and PE protocol. Comparison: May 09, 2022 Good opacification of the pulmonary arteries to include the lobar and segmental branches. No pulmonary embolus. Heart not enlarged. Aorta is normal in course and caliber. No pathologic mediastinal/hilar lymphadenopathy. Lungs again demonstrates minimal biapical subpleural cystic changes. No suspicious pulmonary mass/nodule, infiltrate, or effusion. Bony thorax intact. Limited upper abdomen again demonstrates mild fatty liver. Impression: 1. Continued negative pulmonary embolus. No new/acute cardiopulmonary abnormalities. 2. Again chronic findings including biapical subpleural cystic changes and fatty liver.
[2022-12-26 16:38] LABS: ALBUMIN 4.2 g/dL (3.5-5.0); ALKALINE PHOSPHATASE 98 U/L (38-126); ANION GAP 13.5 MEQ/L (5-15); BLOOD UREA NITROGEN 11 mg/dL (7-17); CHLORIDE 105 mmol/L (98-107); CK-Creatinine Phosphokinase 39 U/L (30-135); Calcium 8.8 mg/dL (8.4-10.2); Carbon Dioxide 25 mmol/L (22-30); Creatinine 1 0.65 mg/dL (0.52-1.04); EST GLOMERULAR FILTRATION RATE > 60.0 ML/MIN; Glucose 96 mg/dL (74-106); SGOT/AST 23 U/L (14-36); SGPT/ALT 16 U/L (0-35); SODIUM 138 mmol/L (137-145); Total Protein 7.7 g/dL (6.3-8.2)
--- NOTE | 2022-12-26 17:00 | ERPHSYRPT ---
- History of Present Illness Time Seen by Provider: 12/26/22 15:44 Source: patient Exam Limitations: no limitations Patient Subjective Stated Complaint: pt here for pain to right side of chest for 3 days now, she has hx of PE and is on blood thinner Triage Nursing Assessment: pt alert, resp easy, skin w/d/p. abd soft, no edema noted, no cough, moves all ext well Physician History: Patient is here with 3 days of right-sided chest pain. No falls or other trauma. Patient states that she does have a history of blood clots while being on Eliquis. Patient states that she called her PCP who told her to come in and get a CAT scan done. Patient is experiencingshortness of breath with this. Patient states that she does continue to smoke. Patient states that her PCP had recommended that she be put on Coumadin. This is given the fact that she has gotten multiple PEs on Eliquis. Chest pain currently 4 out of 10. Nonradiating. No fevers no chills no other associated illness. Allergies/Adverse Reactions: morphine Allergy (Intermediate, Verified 12/26/22 15:48) Hives penicillin G Allergy (Intermediate, Verified 12/26/22 15:48) Hives ibuprofen Allergy (Verified 12/26/22 15:48) Rash Home Medications: Citalopram Hydrobromide [Citalopram HBr] 40 mg PO DAILY 10/17/16 [History] Lovastatin 80 mg PO HS 10/17/16 [History] Nitroglycerin 0.4 mg Tablet [Nitrostat 0.4 MG Tablet] 0.4 mg SL UD 10/17/16 [History] Metoprolol Tartrate 25 mg [Lopressor 25MG Tab] 25 mg PO BID 10/06/17 [History] Nitroglycerin 0.4 mg/Hr [Nitro-Dur 0.4 MG/HR] 0.4 mg TOP DAILY 10/06/17 [History] Divalproex Sodium ER 250 mg [Depakote EXTENDED RELEASE 250 MG] 250 mg PO DAILY 04/14/19 [History] Hx Tetanus, Diphtheria Vaccination/Date Given: Yes Hx Influenza Vaccination/Date Given: Yes Hx Pneumococcal Vaccination/Date Given: Yes Immunizations Up to Date: Yes Travel Risk - International Travel Have you traveled outside of the country in past 3 weeks: No - Coronavirus Screening Are you exhibiting any of the following symptoms?: No Close contact with a COVID-19 positive Pt in past 14-21 Days: No - Vaccine Status Have you recieved a Covid-19 vaccination: No - Review of Systems Constitutional: No Fever, No Chills Eyes: No Symptoms Ears, Nose, & Throat: No Symptoms Respiratory: No Cough, No Dyspnea Cardiac: Chest Pain, No Edema, No Syncope Abdominal/Gastrointestinal: No Abdominal Pain, No Nausea, No Vomiting, No Diar richi Genitourinary Symptoms: No Dysuria Musculoskeletal: No Back Pain, No Neck Pain Skin: No Rash Neurological: No Dizziness, No Focal Weakness, No Sensory Changes Psychological: No Symptoms Endocrine: No Symptoms All Other Systems: Reviewed and Negative - Past Medical History Pertinent Past Medical History: Yes Neurological History: TIA ENT History: Cataracts Cardiac History: Arrhythmia, High Cholesterol, Hypertension, Myocardial Infarction ([place]) Respiratory History: Pulmonary Embolism Endocrine Medical History: Hypoglycemia Musculoskeletal History: No Pertinent History GI Medical History: Other History: No Pertinent History Psycho-Social History: Anxiety, Panic Disorder Female Reproductive Disorders: Cervical Cancer Other Medical History: coronary spasms, mitrovalve prolapse, syncope, "bowel blockage", and a pacemaker/defib placed and removed, former alcoholic - Past Surgical History Past Surgical History: Yes Cardiac: Internal Defibrillator, Pacemaker, Other Respiratory: No Pertinent History Gastrointestinal: No Pertinent History, Bowel Surgery Genitourinary: No Pertinent History Musculoskeletal: No Pertinent History Female Surgical History: Hysterectomy Other Surgical History: pacemaker/defib placed and removed, collar bone - Social History Smoking Status: Current every day smoker How long have you smoked: 35 years Exposure to second hand smoke: Yes Drug Use: none Patient Lives Alone: No - Nursing Vital Signs Nursing Vital Signs: Initial Vital Signs Temperature 97.2 F 12/26/22 15:47 Pulse Rate 98 H 12/26/22 15:47 Respiratory Rate 18 12/26/22 15:47 Blood Pressure 189/79 12/26/22 15:47 O2 Sat by Pulse Oximetry 98 12/26/22 15:47 Pain Scale Pain Intensity 10 - Physical Exam General Appearance: no apparent distress, alert Eye Exam: PERRL/EOMI, eyes nml inspection Ears, Nose, Throat Exam: normal ENT inspection, TMs normal, pharynx normal, moist mucous membranes Neck Exam: normal inspection, non-tender, supple, full range of motion Respiratory Exam: normal breath sounds, lungs clear, No respiratory distress Cardiovascular Exam: regular rate/rhythm, normal heart sounds, normal peripheral pulses Gastrointestinal/Abdomen Exam: soft, normal bowel sounds, No tenderness, No mass Back Exam: normal inspection, normal range of motion, No CVA tenderness, No vertebral tenderness Extremity Exam: normal inspection, normal range of motion, pelvis stable Neurologic Exam: alert, oriented x 3, cooperative, normal mood/affect, No motor deficits Skin Exam: normal color, warm, dry, No rash Lymphatic Exam: No adenopathy SpO2: 98 - Course Nursing assessment & vital signs reviewed: Yes EKG Interpreted by Me: Sinus Rhythm Ordered Tests: Active Orders 24 hr Category Date Time Status EKG-ER Only STAT Care 12/26/22 15:53 Active IV Insertion STAT Care 12/26/22 15:53 Active CHEST WITH CONTRAST [CT] Stat Exams 12/26/22 15:53 Completed CBC W DIFF Stat Lab 12/26/22 16:05 Completed CK-Creatinine Phosphokinase Stat Lab 12/26/22 16:05 Completed CMP Stat Lab 12/26/22 16:05 Completed NT PRO BNPII Stat Lab 12/26/22 Completed PROTIME WITH INR Stat Lab 12/26/22 16:05 Completed TROPONIN Q4H Lab 12/26/22 16:05 Completed TROPONIN Q4H Lab 12/26/22 20:00 Ordered TROPONIN Q4H Lab 12/27/22 00:00 Ordered Medication Summary Discontinued Medications Generic Name Dose Route Start Last Admin Trade Name Freq PRN Reason Stop Dose Admin Aspirin 324 mg 12/26/22 15:53 12/26/22 17:03 Aspirin 81 Mg Tab.Chew PO 12/26/22 15:54 324 mg STAT ONE Administration Aspirin Confirm 12/26/22 17:01 Aspirin 81 Mg Tab.Chew Administered 12/26/22 17:02 Dose 324 mg .ROUTE .STK-MED ONE Sodium Chloride 1,000 mls @ 999 mls/hr 12/26/22 15:53 12/26/22 17:05 Sodium Chloride 0.9% 1000 Ml IV 12/26/22 16:53 Not Given .Q1H1M STA Lab/Rad Data: Laboratory Result Diagrams 12/26/22 16:05 12/26/22 16:05 Laboratory Results 12/26/22 12/26/22 12/26/22 Range/Units Unknown 16:05 16:05 WBC (4.0-10.5) x10^3/uL RBC (4.1-5.4) x10^6/uL Hgb (12.0-16.0) g/dL Hct (35-47) % MCV (78-100) fL MCH (26-32) pg MCHC (32-36) g/dL RDW (11.5-14.0) % Plt Count (150-450) x10^3/uL MPV (7.5-11.0) fL Gran % (36.0-66.0) % Immature Gran % (Auto) (0.00-0.4) % Nucleat RBC Rel Count (0.00-0.1) % Eos # (Auto) (0-0.5) x10^3/uL Immature Gran # (Auto) (0.00-0.03) x10^3u/L Absolute Lymphs (auto) (1.0-4.6) x10^3/uL Absolute Monos (auto) (0.0-1.3) x10^3/uL Absolute Nucleated RBC (0.00-0.01) x10^3u/L Lymphocytes % (24.0-44.0) % Monocytes % (0.0-12.0) % Eosinophils % (0.00-5.0) % Basophils % (0.0-0.4) % Absolute Granulocytes (1.4-6.9) x10^3/uL Basophils # (0-0.4) x10^3/uL PT 10.3 (9.4-12.5) SECONDS INR 0.94 (0.8-3.0) Sodium (137-145) mmol/L Potassium (3.5-5.1) mmol/L Chloride (98-107) mmol/L Carbon Dioxide (22-30) mmol/L Anion Gap (5-15) MEQ/L BUN (7-17) mg/dL Creatinine (0.52-1.04) mg/dL Estimated GFR ML/MIN Glucose (74-106) mg/dL Calcium (8.4-10.2) mg/dL Total Bilirubin (0.2-1.3) mg/dL AST (14-36) U/L ALT (0-35) U/L Alkaline Phosphatase (38-126) U/L Creatine Kinase (30-135) U/L Troponin I < 0.012 (0.000-0.034) ng/mL NT-Pro-B Natriuret Pep 211 (<300) pg/mL Serum Total Protein (6.3-8.2) g/dL Albumin (3.5-5.0) g/dL 12/26/22 12/26/22 Range/Units 16:05 16:05 WBC 13.7 H (4.0-10.5) x10^3/uL RBC 4.60 (4.1-5.4) x10^6/uL Hgb 13.7 (12.0-16.0) g/dL Hct 42.2 (35-47) % MCV 91.7 (78-100) fL MCH 29.8 (26-32) pg MCHC 32.5 (32-36) g/dL RDW 14.7 H (11.5-14.0) % Plt Count 391 (150-450) x10^3/uL MPV 10.3 (7.5-11.0) fL Gran % 57.1 (36.0-66.0) % Immature Gran % (Auto) 0.3 (0.00-0.4) % Nucleat RBC Rel Count 0.0 (0.00-0.1) % Eos # (Auto) 0.13 (0-0.5) x10^3/uL Immature Gran # (Auto) 0.04 H (0.00-0.03) x10^3u/L Absolute Lymphs (auto) 4.81 H (1.0-4.6) x10^3/uL Absolute Monos (auto) 0.85 (0.0-1.3) x10^3/uL Absolute Nucleated RBC 0.00 (0.00-0.01) x10^3u/L Lymphocytes % 35.1 (24.0-44.0) % Monocytes % 6.2 (0.0-12.0) % Eosinophils % 0.9 (0.00-5.0) % Basophils % 0.4 (0.0-0.4) % Absolute Granulocytes 7.82 H (1.4-6.9) x10^3/uL Basophils # 0.05 (0-0.4) x10^3/uL PT (9.4-12.5) SECONDS INR (0.8-3.0) Sodium 138 (137-145) mmol/L Potassium 5.0 (3.5-5.1) mmol/L Chloride 105 (98-107) mmol/L Carbon Dioxide 25 (22-30) mmol/L Anion Gap 13.5 (5-15) MEQ/L BUN 11 (7-17) mg/dL Creatinine 0.65 (0.52-1.04) mg/dL Estimated GFR > 60.0 ML/MIN Glucose 96 (74-106) mg/dL Calcium 8.8 (8.4-10.2) mg/dL Total Bilirubin 0.50 (0.2-1.3) mg/dL AST 23 (14-36) U/L ALT 16 (0-35) U/L Alkaline Phosphatase 98 (38-126) U/L Creatine Kinase 39 (30-135) U/L Troponin I (0.000-0.034) ng/mL NT-Pro-B Natriuret Pep (<300) pg/mL Serum Total Protein 7.7 (6.3-8.2) g/dL Albumin 4.2 (3.5-5.0) g/dL - Progress Progress: improved Progress Note: 12/26/22 17:13 differential diagnosis includes: PNA, STEMI, NSTEMI, other infection, musculoskeletal pain, pneumothorax - We'll obtain basic labs, fluids, EKG, troponin, chest x-ray - I feel comfortable with one time negative troponin given symptoms have improved and started greater then 6 hours ago. - EKG shows no ST changes - my read. See full read below. - O2 saturations consistently greater than 95%. - CTA of the chest shows no acute pulmonary embolism. - no other obvious lab abnormalities No signs of a PE, NH or other sinister pathology today. Patient feeling improved with interventions in the ER. Plan for discharge home. Return here sooner for new or changing symptoms Counseled pt/family regarding: lab results, diagnosis, need for follow-up, rad results - Departure Departure Disposition: Home Clinical Impression: Atypical chest pain Condition: Stable Critical Care Time: No Referrals: RACHID PITT MD [Primary Care Provider] - Follow up/PCP as directed Instructions: Chest Pain (DC)
[2022-12-26] MEDS ORDERED: BABY ASPIRIN 81 MG CHEW ONE (17:01)
[2022-12-26 17:06] VITALS: BP 129/72; PULSE 78
== END 2022-12-26 17:12 | disposition home or self-care (01) ==
LOC: ED 15:40
DX: R07.89 Other chest pain (principal); R06.02 Shortness of breath; E78.5 Hyperlipidemia, unspecified; I10 Essential (primary) hypertension; Z79.01 Long term (current) use of anticoagulants; Z79.899 Other long term (current) drug therapy; Z72.0 Tobacco use
CPT/HCPCS: 36000; 36415; 71260; 80053; 82550; 83880; 84484; 85025; 85610; 93005; 99284; A9270-GY